=== PATIENT | female | born 1945 | race Caucasian/White ===

== ENCOUNTER 2019-09-24 10:56 | Outpatient (RCR) | payer MEDICARE ==
[~2019-09-24 10:56] MED LIST: APPLE CIDER VI500 MG PO; CALCIUM 500+D1 EACH PO; CARVEDILOL3.125 MG PO; CELEBREX100 MG PO; DAILY VALUE1 EACH PO; ENTRESTO 24 MG1 EACH PO; EVISTA60 MG PO; FUROSEMIDE40 MG PO; LIDOCAINE/PRILOCAINE 2.5-2.5% KIT ONE; LIPITOR20 MG PO; LORATADINE10 MG PO; LOTREL 10-20 M1 EACH PO; MAGNESIUM OXID400 MG PO; METFORMIN HCL850 MG PO; MULTIVITAMIN PO; ULTRACET TABLE1 EACH PO; ULTRAM 50MG50 MG PO; VALIUM10 MG PO; VITAMIN B12 PO; VITAMIN C500 MG PO; VITAMIN D32000 UNIT PO; VITAMIN D35000 UNIT PO
[2019-10-08] MEDS ORDERED: ASPIR 8181 MG PO (11:16)
[2019-10-08] MEDS ORDERED: AMIODARONE HCL200 MG PO (11:16)
[2019-10-08] MEDS ORDERED: JANUVIA100 MG PO (11:16)
[2019-10-08] MEDS ORDERED: ULTRAM50 MG PO (11:16)
[2019-10-11] MEDS ORDERED: ULTRAM50 MG PO (13:44)
[2019-10-11] MEDS ORDERED: MINOCYCLINE HC100 M1 PO (13:44)
== END 2019-10-12 ==
LOC: WCC 10:56
PROVIDERS: ATTEND Family Medicine Adult Medicine
DX: E11.69 Type 2 diabetes mellitus with other specified complication (principal); E11.65 Type 2 diabetes mellitus with hyperglycemia; L89.893 Pressure ulcer of other site, stage 3; C50.311 Malignant neoplasm of lower-inner quadrant of right female breast; I10 Essential (primary) hypertension; Z74.01 Bed confinement status
CPT/HCPCS: 36415; 82948

== ENCOUNTER 2019-10-10 13:29 | Observation (INO) | payer MEDICARE ==
[2019-10-08 11:50] LABS: BASOPHILS % 0.5 % (0.0-1.0); EOSINOPHILS % 0.7 % (0.0-6.0); HEMATOCRIT 37.5 % (34.2-44.1); HEMOGLOBIN 11.8 g/dL (12.0-16.0); LYMPHOCYTES # (AUTO) 0.8 (1.0-3.2); LYMPHOCYTES % 14.3 % (18.0-39.1); MEAN CORPUSCULAR HEMOGLOBIN 27.6 pg (28-32); MEAN CORPUSCULAR HGB CONC 31.5 g/dL (31-35); MEAN CORPUSCULAR VOLUME 87.6 fL (81-99); MONOCYTES # (AUTO) 0.6 (0.2-0.8); MONOCYTES % 10.8 % (4.4-11.3); NEUTROPHILS # (AUTO) 4.2 (2.1-6.9); NEUTROPHILS % 73.3 % (38.7-80.0); PLATELET COUNT 185 x10e3/uL (140-360); RED BLOOD COUNT 4.28 x10e6/uL (3.6-5.1); RED CELL DISTRIBUTION WIDTH 16.8 % (11.7-14.4)
[2019-10-08 12:02] LABS: INR 1.13; PROTHROMBIN TIME 15.2 seconds (11.9-14.5)
[2019-10-08 12:08] LABS: ANION GAP 12.5 mmol/L (8-16); CREATININE, SERUM 1.52 mg/dL (0.57-1.11); POTASSIUM 4.5 mmol/L (3.5-5.1)
[2019-10-08 12:10] LABS: CALCIUM 9.3 mg/dL (8.4-10.2)
--- NOTE | 2019-10-08 16:35 | NUR ---
Dr. Escobar notified of creatinine 1.52 and eGFR 33 and EKG showed sinus rhythm with first degree block and Left bundle branch block. No new orders at this time.
--- NOTE | 2019-10-09 17:29 | NUR ---
Patient notified of change in date and time of procedure to tomorrow 10/10/2019@ 1530. Patient notified to arrive at 1400. Patient okay to have light breakfast before 0600. Patient verbalized understanding.
[~2019-10-10] VITALS: Ht 167.6 cm; Wt 65.8 kg
[~2019-10-10 13:29] MED LIST changes: +AMIODARONE HCL200 MG PO; +ASPIR 8181 MG PO; +JANUVIA100 MG PO; -LIDOCAINE/PRILOCAINE 2.5-2.5% KIT ONE; +ULTRAM50 MG PO
--- OUTSIDE RECORDS SUMMARY | 2019-10-10 13:34 | XMS REPORT ---
Author [facility] Address Unknown Phone Unavailable Care Team Providers Care Operations Administrator Name Role Phone ADRIANO MEDEROS Unavailable Unavailable Payers Payer Name Policy Type Policy Number Effective Date Expiration Date Problems This patient has no known problems. Allergies, Adverse Reactions, Alerts Allergy Name Allergy Type Status Severity Reaction(s) Onset Date Inactive Date Treating Clinician Comments No Known Contrast Allergies DA Active U 2007-01-25 00:00:00 No Known Food Allergies DA Active U 2007-01-25 00:00:00 No Known Other Allergies DA Active U 2007-01-25 00:00:00 PENICILLIN DA Active U 2007-01-25 00:00:00 TALWIN DA Active U 2007-01-25 00:00:00 Medications This patient has no known medications. Results Test Description Test Time Test Comments Text Results Atomic Results Result Comments POCT-GLUCOSE METER 2019-06-25 10:04:00 POC-GLUCOSE METER (BEAKER) (test ncio=5057) 120 mg/dL 70-110 : TESTED AT [address], [address]: Child Welfare Caseworker/Manager Agricultural [id number] for Lesly Osorio [id number] 06:20:00* Test Item Value Reference Range Comments MAGNESIUM (BEAKER) (test mrsd=235) 1.9 mg/dL 1.6-2.6 BASIC METABOLIC [id number] 06:20:00* Test Item Value Reference Range Comments SODIUM (BEAKER) (test lhcn=569) 134 meq/L 136-145 POTASSIUM (BEAKER) (test rmov=938) 4.1 meq/L 3.5-5.1 CHLORIDE (BEAKER) (test jlkh=262) 103 meq/L 98-107 CO2 (BEAKER) (test ezou=077) 25 meq/L 22-29 BLOOD UREA NITROGEN (BEAKER) (test gywl=083) 26 mg/dL 7-21 CREATININE (BEAKER) (test rofi=506) 0.98 mg/dL 0.57-1.25 GLUCOSE RANDOM (BEAKER) (test xwwt=807) 111 mg/dL 70-105 CALCIUM (BEAKER) (test rqfq=246) 8.6 mg/dL 8.4-10.2 EGFR (BEAKER) (test bnhd=8581) 55 mL/min/1.73 sq m ESTIMATED GFR IS NOT ACCURATE CREATININE CLEARANCE IN PREDICTING GLOMERULAR FILTRATION RATE. ESTIMATED GFR IS NOT APPLICABLE FOR DIALYSIS PATIENTS. CBC (HEMOGRAM ONLY)2019-06-25 05:17:00* Test Item Value Reference Range Comments WHITE BLOOD CELL COUNT (BEAKER) (test siuf=609) 7.6 K/ L 3.5-10.5 RED BLOOD CELL COUNT (BEAKER) (test aywr=943) 2.78 M/ L 3.93-5.22 HEMOGLOBIN (BEAKER) (test iuoc=057) 8.9 GM/DL 11.2-15.7 HEMATOCRIT (BEAKER) (test acgq=889) 28.0 % 34.1-44.9 MEAN CORPUSCULAR VOLUME (BEAKER) (test sxus=597) 100.7 fL 79.4-94.8 MEAN CORPUSCULAR HEMOGLOBIN (BEAKER) (test vbnr=488) 32.0 pg 25.6-32.2 MEAN CORPUSCULAR HEMOGLOBIN CONC (BEAKER) (test kxzl=094) 31.8 GM/DL 32.2-35.5 RED CELL DISTRIBUTION WIDTH (BEAKER) (test wvft=743) 15.1 % 11.7-14.4 PLATELET COUNT (BEAKER) (test xtxt=850) 213 K/CU MM 150-450 MEAN PLATELET VOLUME (BEAKER) (test dhxf=691) 10.7 fL 9.4-12.3 NUCLEATED RED BLOOD CELLS (BEAKER) (test hskp=814) 0 /100 WBC 0-0 POCT-GLUCOSE [id number] 21:37:00* Test Item Value Reference Range Comments POC-GLUCOSE METER (BEAKER) (test yffv=9537) 128 mg/dL 70-110 : TESTED AT [facility] [address] [facility], [address]: Child Welfare Caseworker/Manager Agricultural [id number]=[id number] for LISSET GRACE POCT-GLUCOSE [id number] 08:18:00* Test Item Value Reference Range Comments POC-GLUCOSE METER (BEAKER) (test wwww=2035) 122 mg/dL 70-110 : TESTED AT [facility] [address] [facility], [address]: Child Welfare Caseworker/Manager Agricultural [id number] for Chioma Hager [id number] 06:32:00* Test Item Value Reference Range Comments MAGNESIUM (BEAKER) (test raep=495) 1.7 mg/dL 1.6-2.6 BASIC METABOLIC [id number] 06:32:00* Test Item Value Reference Range Comments SODIUM (BEAKER) (test xfvg=295) 133 meq/L 136-145 POTASSIUM (BEAKER) (test kbtk=287) 4.1 meq/L 3.5-5.1 CHLORIDE (BEAKER) (test fkwx=813) 102 meq/L 98-107 CO2 (BEAKER) (test kqyj=341) 23 meq/L 22-29 BLOOD UREA NITROGEN (BEAKER) (test dhlb=338) 27 mg/dL 7-21 CREATININE (BEAKER) (test fkpx=088) 0.94 mg/dL 0.57-1.25 GLUCOSE RANDOM (BEAKER) (test lyzd=058) 131 mg/dL 70-105 CALCIUM (BEAKER) (test kjxk=164) 8.8 mg/dL 8.4-10.2 EGFR (BEAKER) (test rdgn=8320) 58 mL/min/1.73 sq m ESTIMATED GFR IS NOT ACCURATE CREATININE CLEARANCE IN PREDICTING GLOMERULAR FILTRATION RATE. ESTIMATED GFR IS NOT APPLICABLE FOR DIALYSIS PATIENTS. CBC (HEMOGRAM ONLY)2019-06-24 05:55:00* Test Item Value Reference Range Comments WHITE BLOOD CELL COUNT (BEAKER) (test ibtn=650) 8.9 K/ L 3.5-10.5 RED BLOOD CELL COUNT (BEAKER) (test rjgq=664) 2.76 M/ L 3.93-5.22 HEMOGLOBIN (BEAKER) (test bcdd=403) 8.8 GM/DL 11.2-15.7 HEMATOCRIT (BEAKER) (test xwzw=603) 26.9 % 34.1-44.9 MEAN CORPUSCULAR VOLUME (BEAKER) (test tgcb=499) 97.5 fL 79.4-94.8 MEAN CORPUSCULAR HEMOGLOBIN (BEAKER) (test zekh=285) 31.9 pg 25.6-32.2 MEAN CORPUSCULAR HEMOGLOBIN CONC (BEAKER) (test tkzi=734) 32.7 GM/DL 32.2-35.5 RED CELL DISTRIBUTION WIDTH (BEAKER) (test qzud=390) 14.6 % 11.7-14.4 PLATELET COUNT (BEAKER) (test cjsr=454) 219 K/CU MM 150-450 MEAN PLATELET VOLUME (BEAKER) (test erjd=808) 11.0 fL 9.4-12.3 NUCLEATED RED BLOOD CELLS (BEAKER) (test iwax=616) 0 /100 WBC 0-0 POCT-GLUCOSE [id number] 20:55:00* Test Item Value Reference Range Comments POC-GLUCOSE METER (BEAKER) (test yfyf=7560) 165 mg/dL 70-110 : TESTED AT [facility] [address] [facility], [address]: Child Welfare Caseworker/Manager Agricultural [id number]=[id number] for ANTHONY PHILLIPO POCT-GLUCOSE [id number] 15:28:00* Test Item Value Reference Range Comments POC-GLUCOSE METER (BEAKER) (test ojjh=6124) 111 mg/dL 70-110 : TESTED AT [place] [address] [facility], [address]: Child Welfare Caseworker/Manager Agricultural [id number] for EMILIA HUANG POCT-GLUCOSE [id number] 13:00:00* Test Item Value Reference Range Comments POC-GLUCOSE METER (BEAKER) (test pgdv=0843) 145 mg/dL 70-110 : TESTED AT [place] [address] [facility], [address]: Child Welfare Caseworker/Manager Agricultural SE=[id number] for REINAEMILIA RAD, CHEST, 1 VIEW, NON [id number] 08:52:00while patient is intubated or has chest tubes.Reason for exam:->Status post CV SurgeryShould this be performed at the bedside?->YesFINAL REPORT AP view of the chest dated 06/23/2019 COMPARISON: 06/22/2019 CLINICAL INFORMATION: Status post CV Surgery Comment: Heart is enlarged. There is bilateral pleural effusion with bibasilar subsegmental atelectasis. The rest of the lungs are clear. No pneumothorax is seen. IMPRESSION: No interval change. Signed: Cecille Cornell MDReport Verified Date/Time: 06/23/2019 08:52:32 Reading Location: [facility] C013W Consult Reading Room -GLUCOSE [id number] 08:24:00* Test Item Value Reference Range Comments POC-GLUCOSE METER (BEAKER) (test gzsi=4507) 112 mg/dL 70-110 : TESTED AT [address], [address]: Child Welfare Caseworker/Manager Agricultural [id number] for EMILIA HUANG [id number] 05:39:00* Test Item Value Reference Range Comments MAGNESIUM (BEAKER) (test rdch=726) 2.0 mg/dL 1.6-2.6 BASIC METABOLIC [id number] 05:39:00* Test Item Value Reference Range Comments SODIUM (BEAKER) (test hxqx=092) 135 meq/L 136-145 POTASSIUM (BEAKER) (test wewu=941) 4.0 meq/L 3.5-5.1 CHLORIDE (BEAKER) (test aazb=523) 104 meq/L 98-107 CO2 (BEAKER) (test etbc=090) 20 meq/L 22-29 BLOOD UREA NITROGEN (BEAKER) (test waue=224) 29 mg/dL 7-21 CREATININE (BEAKER) (test bfqq=895) 0.87 mg/dL 0.57-1.25 GLUCOSE RANDOM (BEAKER) (test itvt=921) 106 mg/dL 70-105 CALCIUM (BEAKER) (test bqzt=799) 8.5 mg/dL 8.4-10.2 EGFR (BEAKER) (test fdqt=3972) 63 mL/min/1.73 sq m ESTIMATED GFR IS NOT ACCURATE CREATININE CLEARANCE IN PREDICTING GLOMERULAR FILTRATION RATE. ESTIMATED GFR IS NOT APPLICABLE FOR DIALYSIS PATIENTS. CBC (HEMOGRAM ONLY)2019-06-23 05:27:00* Test Item Value Reference Range Comments WHITE BLOOD CELL COUNT (BEAKER) (test okzh=186) 6.8 K/ L 3.5-10.5 RED BLOOD CELL COUNT (BEAKER) (test tudt=267) 2.74 M/ L 3.93-5.22 HEMOGLOBIN (BEAKER) (test whfe=566) 8.7 GM/DL 11.2-15.7 HEMATOCRIT (BEAKER) (test lebb=450) 26.6 % 34.1-44.9 MEAN CORPUSCULAR VOLUME (BEAKER) (test ximm=441) 97.1 fL 79.4-94.8 MEAN CORPUSCULAR HEMOGLOBIN (BEAKER) (test kwyn=629) 31.8 pg 25.6-32.2 MEAN CORPUSCULAR HEMOGLOBIN CONC (BEAKER) (test vanp=366) 32.7 GM/DL 32.2-35.5 RED CELL DISTRIBUTION WIDTH (BEAKER) (test upom=441) 14.4 % 11.7-14.4 PLATELET COUNT (BEAKER) (test nioz=477) 177 K/CU MM 150-450 MEAN PLATELET VOLUME (BEAKER) (test ctok=519) 11.3 fL 9.4-12.3 NUCLEATED RED BLOOD CELLS (BEAKER) (test lqin=441) 0 /100 WBC 0-0 POCT-GLUCOSE [id number] 22:36:00* Test Item Value Reference Range Comments POC-GLUCOSE METER (BEAKER) (test irdl=1457) 128 mg/dL 70-110 : TESTED AT [place] [address] [facility], [address]: Child Welfare Caseworker/Manager Agricultural JQ=[id number] for ANTHONY PHILLIPO POCT-GLUCOSE [id number] 17:09:00* Test Item Value Reference Range Comments POC-GLUCOSE METER (BEAKER) (test ixkj=5415) 113 mg/dL 70-110 : TESTED AT [place] [address] [facility], [address]: Child Welfare Caseworker/Manager Agricultural AD=[id number] for HIREN ARRIOLA POCT-GLUCOSE [id number] 12:30:00* Test Item Value Reference Range Comments POC-GLUCOSE METER (BEAKER) (test tyqm=9997) 173 mg/dL 70-110 : TESTED AT [place] [address] [facility], [address]: Child Welfare Caseworker/Manager Agricultural BD=[id number] for SIXTO ANDERSON RAD, CHEST, 1 VIEW, NON [id number] 08:11:00while patient is intubated or has chest tubes.Reason for exam:->Status post CV SurgeryShould this be performed at the bedside?->YesFINAL REPORT RAD, CHEST, 1 VIEW, NON DEPT INDICATION: Status post CV Surgery COMPARISON: Prior day's exam FINDINGS: Portable frontal view of the chest. IMPRESSION: Support Lines: Sternotomy wires Lungs and pleura: Mild bilateral effusions and basilar subsegmental atelectasis No pneumothorax.Heart and mediastinum: Stable contours. Additional findings: None. Signed: Charlie Mays MDReport Verified Date/Time: 06/22/2019 08:11:45 Reading Location: [facility] C013 Neuro Reading Room ESIUM 2019-06-22 07:02:00* Test Item Value Reference Range Comments MAGNESIUM (BEAKER) (test ukso=385) 1.9 mg/dL 1.6-2.6 BASIC METABOLIC [id number] 07:02:00* Test Item Value Reference Range Comments SODIUM (BEAKER) (test wqzs=180) 138 meq/L 136-145 POTASSIUM (BEAKER) (test gnuj=679) 3.7 meq/L 3.5-5.1 CHLORIDE (BEAKER) (test uenk=836) 105 meq/L 98-107 CO2 (BEAKER) (test uyyi=371) 25 meq/L 22-29 BLOOD UREA NITROGEN (BEAKER) (test cmpm=503) 30 mg/dL 7-21 CREATININE (BEAKER) (test phrf=303) 0.84 mg/dL 0.57-1.25 GLUCOSE RANDOM (BEAKER) (test vgqf=299) 96 mg/dL 70-105 CALCIUM (BEAKER) (test aomz=018) 8.5 mg/dL 8.4-10.2 EGFR (BEAKER) (test wnex=9823) 66 mL/min/1.73 sq m ESTIMATED GFR IS NOT ACCURATE CREATININE CLEARANCE IN PREDICTING GLOMERULAR FILTRATION RATE. ESTIMATED GFR IS NOT APPLICABLE FOR DIALYSIS PATIENTS. CBC W/PLT COUNT & AUTO [id number] 06:36:00* Test Item Value Reference Range Comments WHITE BLOOD CELL COUNT (BEAKER) (test zpma=048) 8.1 K/ L 3.5-10.5 RED BLOOD CELL COUNT (BEAKER) (test gmva=826) 2.81 M/ L 3.93-5.22 HEMOGLOBIN (BEAKER) (test tlxd=491) 8.9 GM/DL 11.2-15.7 HEMATOCRIT (BEAKER) (test tbgn=923) 27.6 % 34.1-44.9 MEAN CORPUSCULAR VOLUME (BEAKER) (test jvng=911) 98.2 fL 79.4-94.8 MEAN CORPUSCULAR HEMOGLOBIN (BEAKER) (test corm=277) 31.7 pg 25.6-32.2 MEAN CORPUSCULAR HEMOGLOBIN CONC (BEAKER) (test rrgp=464) 32.2 GM/DL 32.2-35.5 RED CELL DISTRIBUTION WIDTH (BEAKER) (test xsrn=998) 13.9 % 11.7-14.4 PLATELET COUNT (BEAKER) (test rnzo=926) 149 K/CU MM 150-450 MEAN PLATELET VOLUME (BEAKER) (test jaii=571) 11.5 fL 9.4-12.3 NUCLEATED RED BLOOD CELLS (BEAKER) (test xvqd=420) 0 /100 WBC 0-0 NEUTROPHILS RELATIVE PERCENT (BEAKER) (test ecct=153) 72 % LYMPHOCYTES RELATIVE PERCENT (BEAKER) (test wyyt=595) 16 % MONOCYTES RELATIVE PERCENT (BEAKER) (test rzdy=987) 11 % EOSINOPHILS RELATIVE PERCENT (BEAKER) (test kvel=937) 1 % BASOPHILS RELATIVE PERCENT (BEAKER) (test sltn=506) 0 % NEUTROPHILS ABSOLUTE COUNT (BEAKER) (test coir=528) 5.84 K/ L 1.56-6.13 LYMPHOCYTES ABSOLUTE COUNT (BEAKER) (test noft=389) 1.28 K/ L 1.18-3.74 MONOCYTES ABSOLUTE COUNT (BEAKER) (test biwl=452) 0.85 K/ L 0.24-0.36 EOSINOPHILS ABSOLUTE COUNT (BEAKER) (test imha=538) 0.05 K/ L 0.04-0.36 BASOPHILS ABSOLUTE COUNT (BEAKER) (test ajwp=704) 0.03 K/ L 0.01-0.08 IMMATURE GRANULOCYTES-RELATIVE PERCENT (BEAKER) (test ivan=1418) 1 % 0-1 POCT-GLUCOSE [id number] 20:59:00* Test Item Value Reference Range Comments POC-GLUCOSE METER (BEAKER) (test lixx=2097) 118 mg/dL 70-110 : TESTED AT [place] [address] [facility], [address]: Child Welfare Caseworker/Manager Agricultural GT=[id number] for ANTHONY PHILLIPO POCT-GLUCOSE [id number] 18:55:00* Test Item Value Reference Range Comments POC-GLUCOSE METER (BEAKER) (test jvxn=1419) 147 mg/dL 70-110 : TESTED AT [address], [address]: Child Welfare Caseworker/Manager Agricultural EU=[id number] for SIXTO ANDERSON POCT-GLUCOSE [id number] 16:20:00* Test Item Value Reference Range Comments POC-GLUCOSE METER (BEAKER) (test krfn=1015) 120 mg/dL 70-110 : TESTED AT [address], [address]: Child Welfare Caseworker/Manager Agricultural TN=[id number] for SANTIAGO CHAVES POCT-GLUCOSE [id number] 09:40:00* Test Item Value Reference Range Comments POC-GLUCOSE METER (BEAKER) (test sotb=4267) 106 mg/dL 70-110 : TESTED AT [address], [address]: Child Welfare Caseworker/Manager Agricultural OU=[id number] for JUSTIN, SIXTO CBC W/PLT COUNT & AUTO [id number] 05:57:00* Test Item Value Reference Range Comments WHITE BLOOD CELL COUNT (BEAKER) (test xudq=148) 8.9 K/ L 3.5-10.5 RED BLOOD CELL COUNT (BEAKER) (test sqyx=520) 2.67 M/ L 3.93-5.22 HEMOGLOBIN (BEAKER) (test jhjn=638) 8.6 GM/DL 11.2-15.7 HEMATOCRIT (BEAKER) (test ailf=286) 25.7 % 34.1-44.9 MEAN CORPUSCULAR VOLUME (BEAKER) (test xpaa=192) 96.3 fL 79.4-94.8 MEAN CORPUSCULAR HEMOGLOBIN (BEAKER) (test orwv=676) 32.2 pg 25.6-32.2 MEAN CORPUSCULAR HEMOGLOBIN CONC (BEAKER) (test tjcm=304) 33.5 GM/DL 32.2-35.5 RED CELL DISTRIBUTION WIDTH (BEAKER) (test vclu=799) 14.3 % 11.7-14.4 PLATELET COUNT (BEAKER) (test gicw=966) 124 K/CU MM 150-450 MEAN PLATELET VOLUME (BEAKER) (test kvfg=051) 11.6 fL 9.4-12.3 NUCLEATED RED BLOOD CELLS (BEAKER) (test cmnt=388) 0 /100 WBC 0-0 NEUTROPHILS RELATIVE PERCENT (BEAKER) (test tndz=674) 79 % LYMPHOCYTES RELATIVE PERCENT (BEAKER) (test wzcn=597) 12 % MONOCYTES RELATIVE PERCENT (BEAKER) (test hxrr=542) 8 % EOSINOPHILS RELATIVE PERCENT (BEAKER) (test gtov=517) 0 % BASOPHILS RELATIVE PERCENT (BEAKER) (test fsgq=893) 0 % NEUTROPHILS ABSOLUTE COUNT (BEAKER) (test urfb=865) 6.99 K/ L 1.56-6.13 LYMPHOCYTES ABSOLUTE COUNT (BEAKER) (test jjxw=500) 1.02 K/ L 1.18-3.74 MONOCYTES ABSOLUTE COUNT (BEAKER) (test psmn=373) 0.73 K/ L 0.24-0.36 EOSINOPHILS ABSOLUTE COUNT (BEAKER) (test mxiy=872) 0.02 K/ L 0.04-0.36 BASOPHILS ABSOLUTE COUNT (BEAKER) (test noze=127) 0.03 K/ L 0.01-0.08 IMMATURE GRANULOCYTES-RELATIVE PERCENT (BEAKER) (test nyyc=5538) 1 % 0-1 [id number] 05:26:00* Test Item Value Reference Range Comments MAGNESIUM (BEAKER) (test juhe=368) 1.8 mg/dL 1.6-2.6 Specimen slightly hemolyzed BASIC METABOLIC [id number] 05:26:00* Test Item Value Reference Range Comments SODIUM (BEAKER) (test itgf=079) 138 meq/L 136-145 POTASSIUM (BEAKER) (test rasz=235) 3.7 meq/L 3.5-5.1 Specimen slightly hemolyzed CHLORIDE (BEAKER) (test cqyn=073) 107 meq/L 98-107 CO2 (BEAKER) (test mger=694) 26 meq/L 22-29 BLOOD UREA NITROGEN (BEAKER) (test mepg=925) 28 mg/dL 7-21 CREATININE (BEAKER) (test xdhj=437) 0.94 mg/dL 0.57-1.25 Specimen slightly hemolyzed GLUCOSE RANDOM (BEAKER) (test tjds=758) 100 mg/dL 70-105 CALCIUM (BEAKER) (test yauj=555) 8.5 mg/dL 8.4-10.2 EGFR (BEAKER) (test fdbk=0069) 58 mL/min/1.73 sq m ESTIMATED GFR IS NOT ACCURATE CREATININE CLEARANCE IN PREDICTING GLOMERULAR FILTRATION RATE. ESTIMATED GFR IS NOT APPLICABLE FOR DIALYSIS PATIENTS. RAD, CHEST, 1 VIEW, NON [id number] 05:21:00while patient is intubated or has chest tubes.Reason for exam:->Status post CV SurgeryShould this be performed at the bedside?->YesFINAL REPORT RAD, CHEST, 1 VIEW, NON DEPT INDICATION: Status post CV Surgery COMPARISON: Prior day's exam FINDINGS: Portable frontal view of the chest. IMPRESSION: Support Lines: The right IJ sheath has been removed. Otherwise, stable support lines. Lungs and pleura: Unchanged airspace and pleural opacities. No new airspace consolidation. No pneumothorax.Heart and mediastinum: Stable contours. Stable surgical changes.Additional findings: None. Signed: Cecille Blancaeport Verified Date/Time: 06/21/2019 05:21:38 -GLUCOSE [id number] 03:21:00* Test Item Value Reference Range Comments POC-GLUCOSE METER (BEAKER) (test bput=9401) 111 mg/dL 70-110 : TESTED AT [facility] [address] [facility], [address]: Child Welfare Caseworker/Manager Agricultural SH=[id number] for LISSET GRACE POCT-GLUCOSE [id number] 20:36:00* Test Item Value Reference Range Comments POC-GLUCOSE METER (BEAKER) (test ywwi=8544) 127 mg/dL 70-110 : TESTED AT [facility] [address] [facility], [address]: Child Welfare Caseworker/Manager Agricultural OU=[id number] for KENZIE VALENZUELA POCT-GLUCOSE [id number] 17:33:00* Test Item Value Reference Range Comments POC-GLUCOSE METER (BEAKER) (test tynx=2417) 130 mg/dL 70-110 : TESTED AT [facility] [address] [facility], [address]: Child Welfare Caseworker/Manager Agricultural CV=[id number] for Lesly Osorio POCT-GLUCOSE [id number] 11:33:00* Test Item Value Reference Range Comments POC-GLUCOSE METER (BEAKER) (test mels=5526) 150 mg/dL 70-110 : TESTED AT [facility] [address] [facility], [address]: Child Welfare Caseworker/Manager Agricultural [id number] for ADAN SHEA OXYGEN SATURATION, [id number] 09:21:00* Test Item Value Reference Range Comments O2 SATURATION (MEASURED) (BEAKER) (test hvrs=5778) 62.2 % POCT-GLUCOSE [id number] 08:37:00* Test Item Value Reference Range Comments POC-GLUCOSE METER (BEAKER) (test kktl=3293) 152 mg/dL 70-110 : TESTED AT [facility] [address] [facility], [address]: Child Welfare Caseworker/Manager Agricultural ID=[id number] for BEKAH RODARTERED RAD, CHEST, 1 VIEW, NON [id number] 05:00:00while patient is intubated or has chest tubes.Reason for exam:->Status post CV SurgeryShould this be performed at the bedside?->YesFINAL REPORT RAD, CHEST, 1 VIEW, NON DEPT INDICATION: Status post CV Surgery COMPARISON: Prior day's exam FINDINGS: Portable frontal view of the chest. IMPRESSION: Support Lines: Interval removal of right IJ [place]-Nikolas catheter now the central venous catheter over the SVC. Interval previously seen intra-aortic balloon pump. Otherwise unchanged support apparatus.Lungs and pleura: Patchy heterogeneous airspace opacity in the right lung base are increased in the interval . Possibly related to increased right pleural effusion and atelectasis however developing infection should be excluded clinically. No pneumothorax.Heart and mediastinum: Stable contours. Stable surgical changes.Additional findings: None. Signed: [facility] Verified Date/Time: 06/20/2019 05:00:43 [id number] 04:59:00 * Test Item Value Reference Range Comments PHOSPHORUS (BEAKER) (test nmeu=383) 2.7 mg/dL 2.3-4.7 [id number] 04:59:00* Test Item Value Reference Range Comments MAGNESIUM (BEAKER) (test zekn=169) 1.8 mg/dL 1.6-2.6 BASIC METABOLIC [id number] 04:59:00* Test Item Value Reference Range Comments SODIUM (BEAKER) (test otwr=483) 139 meq/L 136-145 POTASSIUM (BEAKER) (test zzax=835) 4.3 meq/L 3.5-5.1 CHLORIDE (BEAKER) (test kpme=962) 111 meq/L 98-107 CO2 (BEAKER) (test kein=497) 21 meq/L 22-29 BLOOD UREA NITROGEN (BEAKER) (test jkhp=702) 25 mg/dL 7-21 CREATININE (BEAKER) (test pgee=633) 0.95 mg/dL 0.57-1.25 GLUCOSE RANDOM (BEAKER) (test yhxr=956) 164 mg/dL 70-105 CALCIUM (BEAKER) (test qace=059) 8.6 mg/dL 8.4-10.2 EGFR (BEAKER) (test eyhv=3661) 57 mL/min/1.73 sq m ESTIMATED GFR IS NOT ACCURATE CREATININE CLEARANCE IN PREDICTING GLOMERULAR FILTRATION RATE. ESTIMATED GFR IS NOT APPLICABLE FOR DIALYSIS PATIENTS. CBC W/PLT COUNT & AUTO [id number] 04:51:00* Test Item Value Reference Range Comments WHITE BLOOD CELL COUNT (BEAKER) (test cgxc=295) 12.2 K/ L 3.5-10.5 RED BLOOD CELL COUNT (BEAKER) (test nplh=094) 2.78 M/ L 3.93-5.22 HEMOGLOBIN (BEAKER) (test hcdg=472) 8.7 GM/DL 11.2-15.7 HEMATOCRIT (BEAKER) (test himb=209) 26.4 % 34.1-44.9 MEAN CORPUSCULAR VOLUME (BEAKER) (test cbyp=096) 95.0 fL 79.4-94.8 MEAN CORPUSCULAR HEMOGLOBIN (BEAKER) (test ckwe=791) 31.3 pg 25.6-32.2 MEAN CORPUSCULAR HEMOGLOBIN CONC (BEAKER) (test lgyr=781) 33.0 GM/DL 32.2-35.5 RED CELL DISTRIBUTION WIDTH (BEAKER) (test dyzv=300) 14.7 % 11.7-14.4 PLATELET COUNT (BEAKER) (test yogb=478) 129 K/CU MM 150-450 MEAN PLATELET VOLUME (BEAKER) (test hdtq=929) 11.2 fL 9.4-12.3 NUCLEATED RED BLOOD CELLS (BEAKER) (test ddhs=402) 0 /100 WBC 0-0 NEUTROPHILS RELATIVE PERCENT (BEAKER) (test zbpa=834) 81 % LYMPHOCYTES RELATIVE PERCENT (BEAKER) (test lcdg=103) 10 % MONOCYTES RELATIVE PERCENT (BEAKER) (test hcsd=331) 8 % EOSINOPHILS RELATIVE PERCENT (BEAKER) (test dvwf=666) 0 % BASOPHILS RELATIVE PERCENT (BEAKER) (test lutu=770) 0 % NEUTROPHILS ABSOLUTE COUNT (BEAKER) (test dkpq=756) 9.86 K/ L 1.56-6.13 LYMPHOCYTES ABSOLUTE COUNT (BEAKER) (test jkgi=074) 1.26 K/ L 1.18-3.74 MONOCYTES ABSOLUTE COUNT (BEAKER) (test lkik=386) 0.97 K/ L 0.24-0.36 EOSINOPHILS ABSOLUTE COUNT (BEAKER) (test pmpa=954) 0.00 K/ L 0.04-0.36 BASOPHILS ABSOLUTE COUNT (BEAKER) (test llaq=192) 0.03 K/ L 0.01-0.08 IMMATURE GRANULOCYTES-RELATIVE PERCENT (BEAKER) (test jiqb=3787) 1 % 0-1 LACTIC ACID, [id number] 04:47:00* Test Item Value Reference Range Comments LACTATE BLOOD ARTERIAL (2) (BEAKER) (test owih=8522) 1.3 mmol/L 0.5-2.2 BLOOD GAS, [id number] 04:41:00* Test Item Value Reference Range Comments PH ARTERIAL (BEAKER) (test xwda=418) 7.49 7.35-7.45 PCO2 ARTERIAL (BEAKER) (test vziv=563) 27 mmHg 35-45 PO2 ARTERIAL (BEAKER) (test iueb=642) 78 mmHg 80-90 O2 SATURATION ARTERIAL (BEAKER) (test sivs=288) 96.7 % 96.0-97.0 HCO3 ARTERIAL (BEAKER) (test xpay=887) 20 mmol/L 21-29 BASE EXCESS ARTERIAL (BEAKER) (test rjcy=478) -2.2 mmol/L -2.0-3.0 PATIENT TEMPERATURE (BEAKER) (test xowv=7383) 36.7 C FIO2 (BEAKER) (test czhe=0158) 100.0 % OXYGEN SATURATION, [id number] 04:40:00* Test Item Value Reference Range Comments O2 SATURATION (MEASURED) (BEAKER) (test obqi=9726) 54.7 % POCT-GLUCOSE [id number] 01:17:00* Test Item Value Reference Range Comments POC-GLUCOSE METER (BEAKER) (test jicc=8783) 144 mg/dL 70-110 : TESTED [address], [id number]: Child Welfare Caseworker/Manager Agricultural NO=[id number] for Dora Reid POCT-GLUCOSE [id number] 21:04:00* Test Item Value Reference Range Comments POC-GLUCOSE METER (BEAKER) (test irqv=5417) 135 mg/dL 70-110 : TESTED AT [address], [address]: Child Welfare Caseworker/Manager Agricultural RM=[id number] for Aris Cordoba OXYGEN SATURATION, [id number] 14:40:00* Test Item Value Reference Range Comments O2 SATURATION (MEASURED) (BEAKER) (test wypb=5409) 45.2 % OXYGEN SATURATION, [id number] 11:16:00* Test Item Value Reference Range Comments O2 SATURATION (MEASURED) (BEAKER) (test ubtl=0031) 45.5 % POCT-GLUCOSE [id number] 05:30:00* Test Item Value Reference Range Comments POC-GLUCOSE METER (BEAKER) (test ohvb=9266) 167 mg/dL 70-110 : TESTED AT [address], [address]: Child Welfare Caseworker/Manager Agricultural PT=[id number] for FRITZ WOOBILala RAD, CHEST, 1 VIEW, NON [id number] 04:07:00while patient is intubated or has chest tubes.Reason for exam:->Status post CV SurgeryShould this be performed at the bedside?->YesFINAL REPORT CLINICAL INDICATION: Postop Comparison: 06/18/2019 The examination is limited by exclusion of the superior portion of the apices. The cardiomediastinal contours are stable. Central pulmonary vascular prominence and bilateral parenchymal and right pleural opacities are unchanged. No pneumothorax is identified. It appears the patient has been extubated, however, exclusion of the apices limits evaluation for high endotracheal tube positioning. Please correlate. Remaining support lines are stable. Signed: Cale Paul MDReport Verified Date/Time: 06/19/2019 04:07:54 [id number] 03:46:00* Test Item Value Reference Range Comments PHOSPHORUS (BEAKER) (test ysfx=535) 3.3 mg/dL 2.3-4.7 [id number] 03:46:00* Test Item Value Reference Range Comments MAGNESIUM (BEAKER) (test izln=382) 2.0 mg/dL 1.6-2.6 BASIC METABOLIC [id number] 03:46:00* Test Item Value Reference Range Comments SODIUM (BEAKER) (test vufx=459) 139 meq/L 136-145 POTASSIUM (BEAKER) (test eieo=771) 4.2 meq/L 3.5-5.1 CHLORIDE (BEAKER) (test ktxi=947) 114 meq/L 98-107 CO2 (BEAKER) (test vjyo=429) 20 meq/L 22-29 BLOOD UREA NITROGEN (BEAKER) (test qgmb=764) 16 mg/dL 7-21 CREATININE (BEAKER) (test qbue=878) 0.78 mg/dL 0.57-1.25 GLUCOSE RANDOM (BEAKER) (test qtpa=695) 173 mg/dL 70-105 CALCIUM (BEAKER) (test gagg=148) 8.5 mg/dL 8.4-10.2 EGFR (BEAKER) (test wnaq=4464) 72 mL/min/1.73 sq m ESTIMATED GFR IS NOT ACCURATE CREATININE CLEARANCE IN PREDICTING GLOMERULAR FILTRATION RATE. ESTIMATED GFR IS NOT APPLICABLE FOR DIALYSIS PATIENTS. CBC (HEMOGRAM ONLY)2019-06-19 03:24:00* Test Item Value Reference Range Comments WHITE BLOOD CELL COUNT (BEAKER) (test pahq=913) 11.2 K/ L 3.5-10.5 RED BLOOD CELL COUNT (BEAKER) (test tozk=488) 2.74 M/ L 3.93-5.22 HEMOGLOBIN (BEAKER) (test vqvu=063) 8.6 GM/DL 11.2-15.7 HEMATOCRIT (BEAKER) (test evqd=480) 26.4 % 34.1-44.9 MEAN CORPUSCULAR VOLUME (BEAKER) (test sbzo=382) 96.4 fL 79.4-94.8 MEAN CORPUSCULAR HEMOGLOBIN (BEAKER) (test nhfm=625) 31.4 pg 25.6-32.2 MEAN CORPUSCULAR HEMOGLOBIN CONC (BEAKER) (test antb=891) 32.6 GM/DL 32.2-35.5 RED CELL DISTRIBUTION WIDTH (BEAKER) (test vchm=688) 15.6 % 11.7-14.4 PLATELET COUNT (BEAKER) (test hrun=582) 110 K/CU MM 150-450 MEAN PLATELET VOLUME (BEAKER) (test dknk=721) 11.0 fL 9.4-12.3 NUCLEATED RED BLOOD CELLS (BEAKER) (test ajtt=045) 0 /100 WBC 0-0 CALCIUM, [id number] 03:16:00* Test Item Value Reference Range Comments CALCIUM IONIZED (BEAKER) (test jekm=553) 1.20 mmol/L 1.12-1.27 PH, BLOOD (BEAKER) (test kisq=7424) 7.43 [id number] 22:31:00* Test Item Value Reference Range Comments GLUCOSE RANDOM (BEAKER) (test zngl=444) 209 mg/dL 70-105 BASIC METABOLIC [id number] 22:31:00* Test Item Value Reference Range Comments SODIUM (BEAKER) (test dynu=891) 133 meq/L 136-145 POTASSIUM (BEAKER) (test enah=561) 4.0 meq/L 3.5-5.1 CHLORIDE (BEAKER) (test bkpg=616) 109 meq/L 98-107 CO2 (BEAKER) (test aenx=570) 17 meq/L 22-29 BLOOD UREA NITROGEN (BEAKER) (test ozwx=815) 18 mg/dL 7-21 CREATININE (BEAKER) (test pxmv=052) 0.84 mg/dL 0.57-1.25 GLUCOSE RANDOM (BEAKER) (test bvmd=035) 209 mg/dL 70-105 CALCIUM (BEAKER) (test zasd=646) 8.1 mg/dL 8.4-10.2 EGFR (BEAKER) (test lyfw=5324) 66 mL/min/1.73 sq m ESTIMATED GFR IS NOT ACCURATE CREATININE CLEARANCE IN PREDICTING GLOMERULAR FILTRATION RATE. ESTIMATED GFR IS NOT APPLICABLE FOR DIALYSIS PATIENTS. CALCIUM, [id number] 22:13:00* Test Item Value Reference Range Comments CALCIUM IONIZED (BEAKER) (test yrly=642) 1.05 mmol/L 1.12-1.27 PH, BLOOD (BEAKER) (test cdfb=8655) 7.41 BLOOD GAS, [id number] 22:13:00* Test Item Value Reference Range Comments PH ARTERIAL (BEAKER) (test hbpz=151) 7.41 7.35-7.45 PCO2 ARTERIAL (BEAKER) (test dggl=785) 33 mmHg 35-45 PO2 ARTERIAL (BEAKER) (test tgep=559) 87 mmHg 80-90 O2 SATURATION ARTERIAL (BEAKER) (test avbu=526) 96.8 % 96.0-97.0 HCO3 ARTERIAL (BEAKER) (test yraj=233) 20 mmol/L 21-29 BASE EXCESS ARTERIAL (BEAKER) (test lyyp=848) -3.9 mmol/L -2.0-3.0 PATIENT TEMPERATURE (BEAKER) (test fmrz=1287) 37.0 C FIO2 (BEAKER) (test bahb=3796) RA HEMOGLOBIN AND [id number] 22:11:00* Test Item Value Reference Range Comments HEMOGLOBIN (BEAKER) (test cleg=623) 8.1 GM/DL 11.2-15.7 HEMATOCRIT (BEAKER) (test fmdq=981) 24.6 % 34.1-44.9 BLOOD GAS, [id number] 16:40:00* Test Item Value Reference Range Comments PH ARTERIAL (BEAKER) (test gfsz=250) 7.39 7.35-7.45 PCO2 ARTERIAL (BEAKER) (test qvyw=442) 35 mmHg 35-45 PO2 ARTERIAL (BEAKER) (test zdym=280) 142 mmHg 80-90 O2 SATURATION ARTERIAL (BEAKER) (test obrv=860) 98.8 % 96.0-97.0 HCO3 ARTERIAL (BEAKER) (test wcxv=864) 20 mmol/L 21-29 BASE EXCESS ARTERIAL (BEAKER) (test wdcd=050) -3.9 mmol/L -2.0-3.0 PATIENT TEMPERATURE (BEAKER) (test xfxl=9743) 37.8 C FIO2 (BEAKER) (test uqxi=3659) 2L SODIUM NA-STAT [id number] 16:40:00* Test Item Value Reference Range Comments SODIUM (BEAKER) (test pwkh=669) 138 meq/L 135-148 GLUCOSE-STAT [id number] 16:40:00* Test Item Value Reference Range Comments GLUCOSE RANDOM (BEAKER) (test okra=749) 197 mg/dL 70-110 HGB/HCT (H&H) - STAT [id number] 16:40:00* Test Item Value Reference Range Comments HEMOGLOBIN (BEAKER) (test vmdo=517) 8.6 g/dL 12.0-15.0 HEMATOCRIT (BEAKER) (test ubwm=073) 25.0 % 36.0-45.0 POTASSIUM-STAT [id number] 16:39:00* Test Item Value Reference Range Comments POTASSIUM (BEAKER) (test vjbg=411) 4.0 meq/L 3.6-5.5 POCT-GLUCOSE [id number] 15:12:00* Test Item Value Reference Range Comments POC-GLUCOSE METER (BEAKER) (test czjy=5142) 223 mg/dL 70-110 : TESTED AT [address], [address]: Child Welfare Caseworker/Manager Agricultural HR=[id number] for WISAM VIEIRA HEMOGLOBIN AND [id number] 13:48:00* Test Item Value Reference Range Comments HEMOGLOBIN (BEAKER) (test dbuv=494) 7.6 GM/DL 11.2-15.7 HEMATOCRIT (BEAKER) (test nort=961) 23.6 % 34.1-44.9 LACTIC ACID, [id number] 09:41:00* Test Item Value Reference Range Comments LACTATE BLOOD ARTERIAL (2) (BEAKER) (test qlxa=0381) 1.2 mmol/L 0.5-2.2 [id number] 09:16:00* Test Item Value Reference Range Comments POTASSIUM (BEAKER) (test hauy=109) 4.1 meq/L 3.5-5.1 Every 8 hours PRN for Creatinine greater than or equal to 2 mg/dL.MAGNESIUM 2019-06-18 09:16:00* Test Item Value Reference Range Comments MAGNESIUM (BEAKER) (test kaxw=621) 2.3 mg/dL 1.6-2.6 Every 8 hours PRN for Creatinine greater than or equal to 2 mg/dL.POCT-GLUCOSE [id number] 07:46:00* Test Item Value Reference Range Comments POC-GLUCOSE METER (BEAKER) (test dvvt=9290) 117 mg/dL 70-110 : TESTED AT [address], [address]: Child Welfare Caseworker/Manager Agricultural [id number] for WISAM VIEIRA CALCIUM, [id number] 07:45:00* Test Item Value Reference Range Comments CALCIUM IONIZED (BEAKER) (test pyeo=684) 1.14 mmol/L 1.12-1.27 PH, BLOOD (BEAKER) (test yvvw=3525) 7.38 BLOOD GAS, [id number] 07:45:00* Test Item Value Reference Range Comments PH ARTERIAL (BEAKER) (test jxgt=655) 7.38 7.35-7.45 PCO2 ARTERIAL (BEAKER) (test oysz=096) 38 mmHg 35-45 PO2 ARTERIAL (BEAKER) (test jcfu=398) 171 mmHg 80-90 O2 SATURATION ARTERIAL (BEAKER) (test jflp=006) 99.1 % 96.0-97.0 HCO3 ARTERIAL (BEAKER) (test vsyg=758) 22 mmol/L 21-29 BASE EXCESS ARTERIAL (BEAKER) (test kmef=745) -3.0 mmol/L -2.0-3.0 PATIENT TEMPERATURE (BEAKER) (test jhsp=0780) 37.2 C FIO2 (BEAKER) (test tkvw=1207) 40.0 % POCT-GLUCOSE [id number] 06:24:00* Test Item Value Reference Range Comments POC-GLUCOSE METER (BEAKER) (test eebt=0572) 117 mg/dL 70-110 : TESTED AT [facility] [address] [place], [address]: Child Welfare Caseworker/Manager Agricultural [phone]=[id number] for Steph Saravia, CHEST, 1 VIEW, NON [id number] 05:45:00while patient is intubated or has chest tubes.Reason for exam:->Status post CV SurgeryShould this be performed at the bedside?->YesFINAL REPORT CLINICAL INDICATION: Postop Comparison: 06/17/2019 The patient is rotated slightly to the right. The cardiomediastinal contours are stable. Central pulmonary vascular prominence and bilateral parenchymal opacities are unchanged. There is no pneumothorax. Support lines are stable. Signed: Cale Paul MDReport Verified Date/Time: 06/18/2019 05:45:03 C METABOLIC [id number] 05:28:00* Test Item Value Reference Range Comments SODIUM (BEAKER) (test onez=211) 146 meq/L 136-145 POTASSIUM (BEAKER) (test bhww=980) 4.1 meq/L 3.5-5.1 Specimen slightly hemolyzed CHLORIDE (BEAKER) (test jluz=873) 120 meq/L 98-107 CO2 (BEAKER) (test zlcx=987) 21 meq/L 22-29 BLOOD UREA NITROGEN (BEAKER) (test ssji=548) 17 mg/dL 7-21 CREATININE (BEAKER) (test dpxh=632) 0.79 mg/dL 0.57-1.25 Specimen slightly hemolyzed GLUCOSE RANDOM (BEAKER) (test eprn=396) 139 mg/dL 70-105 CALCIUM (BEAKER) (test zxlo=050) 7.6 mg/dL 8.4-10.2 EGFR (BEAKER) (test gexe=1424) 71 mL/min/1.73 sq m ESTIMATED GFR IS NOT ACCURATE CREATININE CLEARANCE IN PREDICTING GLOMERULAR FILTRATION RATE. ESTIMATED GFR IS NOT APPLICABLE FOR DIALYSIS PATIENTS. [id number] 05:13:00* Test Item Value Reference Range Comments MAGNESIUM (BEAKER) (test ppyk=103) 2.2 mg/dL 1.6-2.6 Specimen slightly hemolyzed [id number] 05:13:00* Test Item Value Reference Range Comments PHOSPHORUS (BEAKER) (test nzps=973) 3.7 mg/dL 2.3-4.7 Specimen slightly hemolyzed CALCIUM, [id number] 04:50:00* Test Item Value Reference Range Comments CALCIUM IONIZED (BEAKER) (test ghzy=551) 0.97 mmol/L 1.12-1.27 PH, BLOOD (BEAKER) (test ueot=6380) 7.34 CBC (HEMOGRAM ONLY)2019-06-18 04:48:00* Test Item Value Reference Range Comments WHITE BLOOD CELL COUNT (BEAKER) (test xweg=652) 8.9 K/ L 3.5-10.5 RED BLOOD CELL COUNT (BEAKER) (test wvhu=185) 2.65 M/ L 3.93-5.22 HEMOGLOBIN (BEAKER) (test yfdc=355) 8.3 GM/DL 11.2-15.7 HEMATOCRIT (BEAKER) (test pipc=705) 26.2 % 34.1-44.9 MEAN CORPUSCULAR VOLUME (BEAKER) (test lfkj=290) 98.9 fL 79.4-94.8 MEAN CORPUSCULAR HEMOGLOBIN (BEAKER) (test mgdp=404) 31.3 pg 25.6-32.2 MEAN CORPUSCULAR HEMOGLOBIN CONC (BEAKER) (test agul=047) 31.7 GM/DL 32.2-35.5 RED CELL DISTRIBUTION WIDTH (BEAKER) (test tqhj=387) 14.9 % 11.7-14.4 PLATELET COUNT (BEAKER) (test gifv=907) 157 K/CU MM 150-450 MEAN PLATELET VOLUME (BEAKER) (test hcof=354) 11.2 fL 9.4-12.3 NUCLEATED RED BLOOD CELLS (BEAKER) (test fiwi=976) 0 /100 WBC 0-0 OXYGEN SATURATION, [id number] 04:47:00* Test Item Value Reference Range Comments O2 SATURATION (MEASURED) (BEAKER) (test pxiz=6490) 92.3 % BLOOD GAS, [id number] 04:40:00* Test Item Value Reference Range Comments PH ARTERIAL (BEAKER) (test kdpk=490) 7.36 7.35-7.45 PCO2 ARTERIAL (BEAKER) (test xris=152) 38 mmHg 35-45 PO2 ARTERIAL (BEAKER) (test yjyi=503) 197 mmHg 80-90 O2 SATURATION ARTERIAL (BEAKER) (test vsjs=091) 99.3 % 96.0-97.0 HCO3 ARTERIAL (BEAKER) (test ssrv=252) 21 mmol/L 21-29 BASE EXCESS ARTERIAL (BEAKER) (test cmct=384) -4.2 mmol/L -2.0-3.0 PATIENT TEMPERATURE (BEAKER) (test uzgn=6808) 37.0 C POCT-GLUCOSE [id number] 04:21:00* Test Item Value Reference Range Comments POC-GLUCOSE METER (BEAKER) (test fuqm=0645) 116 mg/dL 70-110 : TESTED AT [address], [address]: Child Welfare Caseworker/Manager Agricultural UV=[id number] for Jazmyn Saraviagi POCT-GLUCOSE [id number] 03:07:00* Test Item Value Reference Range Comments POC-GLUCOSE METER (BEAKER) (test xrxd=2086) 112 mg/dL 70-110 : TESTED AT [address], [address]: Child Welfare Caseworker/Manager Agricultural QY=[id number] for Jazmyn Saraviagi POCT-GLUCOSE [id number] 02:24:00* Test Item Value Reference Range Comments POC-GLUCOSE METER (BEAKER) (test wzhm=2808) 137 mg/dL 70-110 : TESTED AT [address], [address]: Child Welfare Caseworker/Manager Agricultural TZ=[id number] for Manjit Jazmyngi POCT-GLUCOSE [id number] 01:52:00* Test Item Value Reference Range Comments POC-GLUCOSE METER (BEAKER) (test eloj=4113) 153 mg/dL 70-110 : TESTED AT [address], [address]: Child Welfare Caseworker/Manager Agricultural KL=[id number] for Manjit, Jazmyngi POCT-GLUCOSE [id number] 23:18:00* Test Item Value Reference Range Comments POC-GLUCOSE METER (BEAKER) (test unzd=5897) 138 mg/dL 70-110 : TESTED AT [address], [address]: Child Welfare Caseworker/Manager Agricultural NX=[id number] for Manjit, Jazmyngi POCT-GLUCOSE [id number] 23:17:00* Test Item Value Reference Range Comments POC-GLUCOSE METER (BEAKER) (test ywiz=4423) 145 mg/dL 70-110 : TESTED AT [place] [address] [facility], [address]: Child Welfare Caseworker/Manager Agricultural JZ=[id number] for Steph Saravia POCT-GLUCOSE [id number] 23:14:00* Test Item Value Reference Range Comments POC-GLUCOSE METER (BEAKER) (test ttmg=8080) 135 mg/dL 70-110 : TESTED AT [address], [address]: Child Welfare Caseworker/Manager Agricultural BG=[id number] for Steph Saravia POCT-GLUCOSE [id number] 23:13:00* Test Item Value Reference Range Comments POC-GLUCOSE METER (BEAKER) (test muhg=1524) 116 mg/dL 70-110 : TESTED AT [address], [address]: Child Welfare Caseworker/Manager Agricultural MC=[id number] for Steph Saravia [id number] 23:00:00* Test Item Value Reference Range Comments PHOSPHORUS (BEAKER) (test haoy=832) 1.1 mg/dL 2.3-4.7 [id number] 22:56:00* Test Item Value Reference Range Comments MAGNESIUM (BEAKER) (test worq=350) 2.0 mg/dL 1.6-2.6 LACTIC ACID, [id number] 22:52:00* Test Item Value Reference Range Comments LACTATE BLOOD ARTERIAL (2) (BEAKER) (test xsyk=5963) 3.9 mmol/L 0.5-2.2 HEMOGLOBIN AND [id number] 22:42:00* Test Item Value Reference Range Comments HEMOGLOBIN (BEAKER) (test jpkw=751) 7.5 GM/DL 11.2-15.7 HEMATOCRIT (BEAKER) (test lvlg=884) 23.4 % 34.1-44.9 SODIUM NA-STAT [id number] 22:38:00* Test Item Value Reference Range Comments SODIUM (BEAKER) (test yuwl=518) 142 meq/L 135-148 POTASSIUM-STAT [id number] 22:38:00* Test Item Value Reference Range Comments POTASSIUM (BEAKER) (test mcej=938) 3.8 meq/L 3.6-5.5 CALCIUM, [id number] 22:38:00* Test Item Value Reference Range Comments CALCIUM IONIZED (BEAKER) (test rgmq=972) 1.18 mmol/L 1.12-1.27 PH, BLOOD (BEAKER) (test pljm=3889) 7.38 BLOOD GAS, [id number] 22:38:00* Test Item Value Reference Range Comments PH ARTERIAL (BEAKER) (test male=277) 7.38 7.35-7.45 PCO2 ARTERIAL (BEAKER) (test axae=251) 34 mmHg 35-45 PO2 ARTERIAL (BEAKER) (test gbjg=529) 199 mmHg 80-90 O2 SATURATION ARTERIAL (BEAKER) (test iasx=400) 99.4 % 96.0-97.0 HCO3 ARTERIAL (BEAKER) (test tdzq=206) 20 mmol/L 21-29 BASE EXCESS ARTERIAL (BEAKER) (test ehrj=464) -4.6 mmol/L -2.0-3.0 PATIENT TEMPERATURE (BEAKER) (test ytsf=4333) 37.0 C FIO2 (BEAKER) (test errw=0312) 100.0 % GLUCOSE-STAT [id number] 22:38:00* Test Item Value Reference Range Comments GLUCOSE RANDOM (BEAKER) (test nrei=279) 150 mg/dL 70-110 HGB/HCT (H&H) - STAT [id number] 22:38:00* Test Item Value Reference Range Comments HEMOGLOBIN (BEAKER) (test nehp=196) 8.1 g/dL 12.0-15.0 HEMATOCRIT (BEAKER) (test ohiu=347) 24.0 % 36.0-45.0 OXYGEN SATURATION, [id number] 22:38:00* Test Item Value Reference Range Comments O2 SATURATION (MEASURED) (BEAKER) (test knmu=0204) 81.4 % LACTIC ACID, [id number] 21:09:00* Test Item Value Reference Range Comments LACTATE BLOOD VENOUS (2) (BEAKER) (test xlyu=3464) 4.4 mmol/L 0.5-2.2 BLOOD GAS, [id number] 19:15:00* Test Item Value Reference Range Comments PH ARTERIAL (BEAKER) (test xawz=135) 7.34 7.35-7.45 PCO2 ARTERIAL (BEAKER) (test fvgm=570) 37 mmHg 35-45 PO2 ARTERIAL (BEAKER) (test ndta=976) 192 mmHg 80-90 O2 SATURATION ARTERIAL (BEAKER) (test jslt=639) 99.2 % 96.0-97.0 HCO3 ARTERIAL (BEAKER) (test khrz=596) 19 mmol/L 21-29 BASE EXCESS ARTERIAL (BEAKER) (test gmvx=712) -5.5 mmol/L -2.0-3.0 PATIENT TEMPERATURE (BEAKER) (test gran=2088) 38.2 C FIO2 (BEAKER) (test qryi=0006) 40.0 % OXYGEN SATURATION, [id number] 19:14:00* Test Item Value Reference Range Comments O2 SATURATION (MEASURED) (BEAKER) (test tkur=9964) 72.5 % POCT-GLUCOSE [id number] 18:44:00* Test Item Value Reference Range Comments POC-GLUCOSE METER (BEAKER) (test ivxe=6863) 154 mg/dL 70-110 : TESTED AT [address], [address]: Child Welfare Caseworker/Manager Agricultural MK=[id number] for MATI NATH POCT-GLUCOSE [id number] 18:44:00* Test Item Value Reference Range Comments POC-GLUCOSE METER (BEAKER) (test nkbc=4390) 150 mg/dL 70-110 : TESTED AT [address], [address]: Child Welfare Caseworker/Manager Agricultural AX=[id number] for MATI NATH LACTIC ACID, [id number] 18:08:00* Test Item Value Reference Range Comments LACTATE BLOOD VENOUS (2) (BEAKER) (test ipxf=9776) 5.5 mmol/L 0.5-2.2 [id number] 18:06:00* Test Item Value Reference Range Comments POTASSIUM (BEAKER) (test rwgc=324) 4.3 meq/L 3.5-5.1 Specimen slightly hemolyzed [id number] 17:54:00* Test Item Value Reference Range Comments ACTIVATED CLOTTING TIME (BEAKER) (test rslz=768) 109 sec Reference Range: 74-137 seconds, Baseline/TESTED AT [place] [address] [id number] 17:54:00* Test Item Value Reference Range Comments ACTIVATED CLOTTING TIME (BEAKER) (test hogu=540) 753 sec Reference Range: 74-137 seconds, Baseline/TESTED AT [place] [address] [id number] 17:54:00* Test Item Value Reference Range Comments ACTIVATED CLOTTING TIME (BEAKER) (test hpot=366) 841 sec Reference Range: 74-137 seconds, Baseline/TESTED AT [place] [address] [id number] 17:54:00* Test Item Value Reference Range Comments ACTIVATED CLOTTING TIME (BEAKER) (test iioy=218) 808 sec Reference Range: 74-137 seconds, Baseline/TESTED AT [place] [address] [id number] 17:54:00* Test Item Value Reference Range Comments ACTIVATED CLOTTING TIME (BEAKER) (test fsow=933) 890 sec Reference Range: 74-137 seconds, Baseline/TESTED AT [place] [address] [id number] 17:54:00* Test Item Value Reference Range Comments ACTIVATED CLOTTING TIME (BEAKER) (test jjvj=774) 599 sec Reference Range: 74-137 seconds, Baseline/TESTED AT [place] [address] [id number] 17:54:00* Test Item Value Reference Range Comments ACTIVATED CLOTTING TIME (BEAKER) (test qrkd=813) 98 sec Reference Range: 74- 137 seconds, Baseline/TESTED AT [place] [address] POCT-GLUCOSE [id number] 17:08:00* Test Item Value Reference Range Comments POC-GLUCOSE METER (BEAKER) (test lsda=1361) 158 mg/dL 70-110 : TESTED AT [place] [id number]: Child Welfare Caseworker/Manager Agricultural VS=[id number] for MATI NATH PLATELET [id number] 16:10:00* Test Item Value Reference Range Comments PLATELET COUNT (BEAKER) (test hbyk=304) 263 K/CU MM 150-450 CBC W/PLT COUNT & AUTO [id number] 16:08:00* Test Item Value Reference Range Comments WHITE BLOOD CELL COUNT (BEAKER) (test uqko=480) 14.2 K/ L 3.5-10.5 RED BLOOD CELL COUNT (BEAKER) (test iyxc=198) 3.38 M/ L 3.93-5.22 HEMOGLOBIN (BEAKER) (test ojan=546) 10.6 GM/DL 11.2-15.7 HEMATOCRIT (BEAKER) (test hxvc=256) 33.6 % 34.1-44.9 MEAN CORPUSCULAR VOLUME (BEAKER) (test ggip=585) 99.4 fL 79.4-94.8 MEAN CORPUSCULAR HEMOGLOBIN (BEAKER) (test muci=513) 31.4 pg 25.6-32.2 MEAN CORPUSCULAR HEMOGLOBIN CONC (BEAKER) (test xopd=962) 31.5 GM/DL 32.2-35.5 RED CELL DISTRIBUTION WIDTH (BEAKER) (test hhuy=432) 13.7 % 11.7-14.4 PLATELET COUNT (BEAKER) (test ujkr=923) 263 K/CU MM 150-450 MEAN PLATELET VOLUME (BEAKER) (test lvde=499) 10.5 fL 9.4-12.3 NUCLEATED RED BLOOD CELLS (BEAKER) (test htxi=369) 0 /100 WBC 0-0 NEUTROPHILS RELATIVE PERCENT (BEAKER) (test pcyy=993) 81 % LYMPHOCYTES RELATIVE PERCENT (BEAKER) (test tser=922) 8 % MONOCYTES RELATIVE PERCENT (BEAKER) (test dcag=564) 9 % EOSINOPHILS RELATIVE PERCENT (BEAKER) (test agej=820) 1 % BASOPHILS RELATIVE PERCENT (BEAKER) (test uskq=333) 0 % NEUTROPHILS ABSOLUTE COUNT (BEAKER) (test dhyg=287) 11.52 K/ L 1.56-6.13 LYMPHOCYTES ABSOLUTE COUNT (BEAKER) (test mhnc=405) 1.20 K/ L 1.18-3.74 MONOCYTES ABSOLUTE COUNT (BEAKER) (test xvqu=682) 1.30 K/ L 0.24-0.36 EOSINOPHILS ABSOLUTE COUNT (BEAKER) (test lfxw=232) 0.07 K/ L 0.04-0.36 BASOPHILS ABSOLUTE COUNT (BEAKER) (test hyoq=724) 0.03 K/ L 0.01-0.08 IMMATURE GRANULOCYTES-RELATIVE PERCENT (BEAKER) (test vqip=6339) 1 % 0-1 CBC W/PLT COUNT & AUTO [id number] 16:08:00* Test Item Value Reference Range Comments WHITE BLOOD CELL COUNT (BEAKER) (test izgm=034) 16.5 K/ L 3.5-10.5 RED BLOOD CELL COUNT (BEAKER) (test zcik=320) 2.85 M/ L 3.93-5.22 HEMOGLOBIN (BEAKER) (test bxgm=850) 9.2 GM/DL 11.2-15.7 HEMATOCRIT (BEAKER) (test jvbo=484) 28.7 % 34.1-44.9 MEAN CORPUSCULAR VOLUME (BEAKER) (test yjat=170) 100.7 fL 79.4-94.8 MEAN CORPUSCULAR HEMOGLOBIN (BEAKER) (test evfw=565) 32.3 pg 25.6-32.2 MEAN CORPUSCULAR HEMOGLOBIN CONC (BEAKER) (test jhyw=004) 32.1 GM/DL 32.2-35.5 RED CELL DISTRIBUTION WIDTH (BEAKER) (test uwzl=018) 13.7 % 11.7-14.4 PLATELET COUNT (BEAKER) (test paqz=979) 299 K/CU MM 150-450 MEAN PLATELET VOLUME (BEAKER) (test oefu=916) 10.8 fL 9.4-12.3 NUCLEATED RED BLOOD CELLS (BEAKER) (test oqtx=501) 0 /100 WBC 0-0 NEUTROPHILS RELATIVE PERCENT (BEAKER) (test wakc=449) 80 % LYMPHOCYTES RELATIVE PERCENT (BEAKER) (test vukv=993) 9 % MONOCYTES RELATIVE PERCENT (BEAKER) (test qmdv=378) 10 % EOSINOPHILS RELATIVE PERCENT (BEAKER) (test jpcs=611) 1 % BASOPHILS RELATIVE PERCENT (BEAKER) (test duyp=771) 0 % NEUTROPHILS ABSOLUTE COUNT (BEAKER) (test wqug=360) 13.16 K/ L 1.56-6.13 LYMPHOCYTES ABSOLUTE COUNT (BEAKER) (test xyzp=597) 1.54 K/ L 1.18-3.74 MONOCYTES ABSOLUTE COUNT (BEAKER) (test eofu=397) 1.61 K/ L 0.24-0.36 EOSINOPHILS ABSOLUTE COUNT (BEAKER) (test yrqg=555) 0.09 K/ L 0.04-0.36 BASOPHILS ABSOLUTE COUNT (BEAKER) (test tznc=190) 0.04 K/ L 0.01-0.08 IMMATURE GRANULOCYTES-RELATIVE PERCENT (BEAKER) (test ackt=7913) 1 % 0-1 RAD, CHEST, 1 VIEW, NON [id number] 15:57:00Reason for exam:->Status post CV Surgery post op day 0Should this be performed at the bedside?->YesFINAL REPORT EXAM: Frontal chest radiograph HISTORY PROVIDED: Status post cardiovascular surgery postop day 0 COMPARISON: Chest CT 06/11/2019 IMPRESSION:The tip of an endotracheal tube terminates approximately 5.6 cm above the kelly. A right IJ approach [place] catheter has been placed with the tip projecting over the expected location of the distal pulmonary outflow tract/main pulmonary artery. A left thoracostomy tube and mid chest mediastinal drain are in place. The tip of an enteric tube projects over the expected location of the stomach. Small bilateral pleural effusions are suspected with mild central pulmonary vascular congestion. No discernible pneumothorax. The cardiac silhoue tte is within normal limits for size. Sternotomy wires are noted. No acute osseo us abnormality. Signed: Shadia Henley MDReport Verified Date/Time: 019 15:57:11 [facility] Electronically sign ed by: SHADIA HENLEY on 06/17/2019 03:57 PM LACTIC ACID, [id number] 15:51:00* Test Item Value Reference Range Comments LACTATE BLOOD VENOUS (2) (BEAKER) (test ukkv=0262) 5.3 mmol/L 0.5-2.2 Specimen slightly hemolyzed PROTHROMBIN TIME/[id number] 15:35:00* Test Item Value Reference Range Comments PROTIME (BEAKER) (test cxyl=362) 16.5 seconds 11.9-14.2 INR (BEAKER) (test epnt=336) 1.4 <=5.9 Effective 01/09/2019: PT Reference Range ChangeNew: 11.9-14.2 Previous: 11.7-14. 7RECOMMENDED COUMADIN/WARFARIN INR THERAPY RANGESSTANDARD DOSE: 2.0-3.0 Include s: PROPHYLAXIS for venous thrombosis, systemic embolization; TREATMENT for venou s thrombosis and/or pulmonary embolus.HIGH RISK: Target INR is 2.5-3.5 for patie nts wiht mechanical heart valves.[id number] 15:35:00* Test Item Value Reference Range Comments FIBRINOGEN LEVEL (BEAKER) (test swpr=875) 257 mg/dl 225-434 [id number] 15:35:00* Test Item Value Reference Range Comments PARTIAL THROMBOPLASTIN TIME (BEAKER) (test cnph=076) 35.5 seconds 22.5-36.0 [id number] 15:35:00* Test Item Value Reference Range Comments MAGNESIUM (BEAKER) (test jmip=432) 2.3 mg/dL 1.6-2.6 Specimen slightly hemolyzed [id number] 15:35:00* Test Item Value Reference Range Comments PHOSPHORUS (BEAKER) (test oyla=049) 2.4 mg/dL 2.3-4.7 Specimen slightly hemolyzed BASIC METABOLIC [id number] 15:35:00* Test Item Value Reference Range Comments SODIUM (BEAKER) (test vuxv=984) 146 meq/L 136-145 POTASSIUM (BEAKER) (test boga=481) 3.6 meq/L 3.5-5.1 Specimen slightly hemolyzed CHLORIDE (BEAKER) (test iumd=470) 116 meq/L 98-107 CO2 (BEAKER) (test vqmg=718) 21 meq/L 22-29 BLOOD UREA NITROGEN (BEAKER) (test wqzk=467) 16 mg/dL 7-21 CREATININE (BEAKER) (test sfpj=645) 0.92 mg/dL 0.57-1.25 Specimen slightly hemolyzed GLUCOSE RANDOM (BEAKER) (test wuph=645) 230 mg/dL 70-105 CALCIUM (BEAKER) (test nbjf=523) 9.5 mg/dL 8.4-10.2 EGFR (BEAKER) (test mmad=2869) 60 mL/min/1.73 sq m ESTIMATED GFR IS NOT ACCURATE CREATININE CLEARANCE IN PREDICTING GLOMERULAR FILTRATION RATE. ESTIMATED GFR IS NOT APPLICABLE FOR DIALYSIS PATIENTS. CALCIUM, [id number] 15:14:00* Test Item Value Reference Range Comments CALCIUM IONIZED (BEAKER) (test dffx=644) 1.25 mmol/L 1.12-1.27 PH, BLOOD (BEAKER) (test bmzc=3362) 7.32 OXYGEN SATURATION, [id number] 15:14:00* Test Item Value Reference Range Comments O2 SATURATION (MEASURED) (BEAKER) (test zpdi=3821) 72.1 % BLOOD GAS, [id number] 15:14:00* Test Item Value Reference Range Comments PH ARTERIAL (BEAKER) (test dcqp=638) 7.33 7.35-7.45 PCO2 ARTERIAL (BEAKER) (test bwpf=440) 40 mmHg 35-45 PO2 ARTERIAL (BEAKER) (test pmth=078) 287 mmHg 80-90 O2 SATURATION ARTERIAL (BEAKER) (test usar=382) 99.6 % 96.0-97.0 HCO3 ARTERIAL (BEAKER) (test vkqg=609) 21 mmol/L 21-29 BASE EXCESS ARTERIAL (BEAKER) (test cewe=841) -5.1 mmol/L -2.0-3.0 PATIENT TEMPERATURE (BEAKER) (test whhx=8868) 36.1 C FIO2 (BEAKER) (test vimk=6949) 60.0 % [id number] 15:05:00* Test Item Value Reference Range Comments MAGNESIUM (BEAKER) (test icxe=879) 2.0 mg/dL 1.6-2.6 BASIC METABOLIC [id number] 14:26:00* Test Item Value Reference Range Comments SODIUM (BEAKER) (test oygi=606) 141 meq/L 136-145 POTASSIUM (BEAKER) (test ykll=252) 4.1 meq/L 3.5-5.1 CHLORIDE (BEAKER) (test ubff=097) 107 meq/L 98-107 CO2 (BEAKER) (test zbcj=488) 28 meq/L 22-29 BLOOD UREA NITROGEN (BEAKER) (test inji=247) 19 mg/dL 7-21 CREATININE (BEAKER) (test unfk=011) 0.84 mg/dL 0.57-1.25 GLUCOSE RANDOM (BEAKER) (test gcrn=298) 108 mg/dL 70-105 CALCIUM (BEAKER) (test zlcv=864) 9.2 mg/dL 8.4-10.2 EGFR (BEAKER) (test bqpq=6923) 66 mL/min/1.73 sq m ESTIMATED GFR IS NOT ACCURATE CREATININE CLEARANCE IN PREDICTING GLOMERULAR FILTRATION RATE. ESTIMATED GFR IS NOT APPLICABLE FOR DIALYSIS PATIENTS. [id number] 14:26:00* Test Item Value Reference Range Comments PHOSPHORUS (BEAKER) (test pcob=756) 3.1 mg/dL 2.3-4.7 THROMBOELASTOGRAPH (TEG)2019-06-17 13:58:00* Test Item Value Reference Range Comments TEG ACTIVATED CLOTTING TIME (BEAKER) (test hfes=8435) 5.1 minutes 4.0-7.0 TEG FIBRINOGEN ACTIVITY (BEAKER) (test blkn=0768) 68.0 degrees 61.0-73.0 TEG PLT. AGGREGATION (BEAKER) (test cvyc=9741) 51.0 MM 55.0-65.0 TGH ACTIVATED CLOTTING TIME (BEAKER) (test xkkl=9000) 5.3 minutes 4.0-7.0 TGH FIBRINOGEN ACTIVITY (BEAKER) (test gfbp=6467) 70.6 degrees 61.0-73.0 TGH PLT. AGGREGATION (BEAKER) (test vztx=9920) 59.0 MM 55.0-65.0 PROTHROMBIN TIME/[id number] 13:31:00* Test Item Value Reference Range Comments PROTIME (BEAKER) (test zhzt=447) 19.4 seconds 11.9-14.2 INR (BEAKER) (test itdl=974) 1.7 <=5.9 Effective 01/09/2019: PT Reference Range ChangeNew: 11.9-14.2 Previous: 11.7-14. 7RECOMMENDED COUMADIN/WARFARIN INR THERAPY RANGESSTANDARD DOSE: 2.0-3.0 Include s: PROPHYLAXIS for venous thrombosis, systemic embolization; TREATMENT for venou s thrombosis and/or pulmonary embolus.HIGH RISK: Target INR is 2.5-3.5 for patie nts wiht mechanical heart valves.[id number] 13:31:00* Test Item Value Reference Range Comments FIBRINOGEN LEVEL (BEAKER) (test uwtf=124) 206 mg/dl 225-434 [id number] 13:31:00* Test Item Value Reference Range Comments PARTIAL THROMBOPLASTIN TIME (BEAKER) (test erdg=025) 37.0 seconds 22.5-36.0 CBC W/PLT COUNT & AUTO [id number] 13:23:00* Test Item Value Reference Range Comments WHITE BLOOD CELL COUNT (BEAKER) (test dkoh=568) 17.2 K/ L 3.5-10.5 RED BLOOD CELL COUNT (BEAKER) (test hjnc=180) 2.50 M/ L 3.93-5.22 HEMOGLOBIN (BEAKER) (test mlir=317) 8.0 GM/DL 11.2-15.7 HEMATOCRIT (BEAKER) (test znao=270) 24.9 % 34.1-44.9 MEAN CORPUSCULAR VOLUME (BEAKER) (test rsmp=164) 99.6 fL 79.4-94.8 MEAN CORPUSCULAR HEMOGLOBIN (BEAKER) (test yagt=207) 32.0 pg 25.6-32.2 MEAN CORPUSCULAR HEMOGLOBIN CONC (BEAKER) (test jmkp=635) 32.1 GM/DL 32.2-35.5 RED CELL DISTRIBUTION WIDTH (BEAKER) (test urtl=648) 13.6 % 11.7-14.4 PLATELET COUNT (BEAKER) (test djok=655) 100 K/CU MM 150-450 MEAN PLATELET VOLUME (BEAKER) (test fcns=874) 10.7 fL 9.4-12.3 NUCLEATED RED BLOOD CELLS (BEAKER) (test lgbq=651) 0 /100 WBC 0-0 NEUTROPHILS RELATIVE PERCENT (BEAKER) (test kspg=493) 75 % LYMPHOCYTES RELATIVE PERCENT (BEAKER) (test enxn=839) 20 % MONOCYTES RELATIVE PERCENT (BEAKER) (test clal=941) 4 % EOSINOPHILS RELATIVE PERCENT (BEAKER) (test ijgr=901) 1 % BASOPHILS RELATIVE PERCENT (BEAKER) (test eebo=419) 0 % NEUTROPHILS ABSOLUTE COUNT (BEAKER) (test bmhv=659) 12.91 K/ L 1.56-6.13 LYMPHOCYTES ABSOLUTE COUNT (BEAKER) (test ttit=882) 3.43 K/ L 1.18-3.74 MONOCYTES ABSOLUTE COUNT (BEAKER) (test vebc=327) 0.60 K/ L 0.24-0.36 EOSINOPHILS ABSOLUTE COUNT (BEAKER) (test xbtu=988) 0.12 K/ L 0.04-0.36 BASOPHILS ABSOLUTE COUNT (BEAKER) (test tnow=515) 0.04 K/ L 0.01-0.08 IMMATURE GRANULOCYTES-RELATIVE PERCENT (BEAKER) (test cyaj=0406) 1 % 0-1 BLOOD GAS, [id number] 13:12:00* Test Item Value Reference Range Comments PH ARTERIAL (BEAKER) (test adxg=982) 7.40 7.35-7.45 PCO2 ARTERIAL (BEAKER) (test iwmp=651) 37 mmHg 35-45 PO2 ARTERIAL (BEAKER) (test lefb=284) 454 mmHg 80-90 O2 SATURATION ARTERIAL (BEAKER) (test mymz=301) 99.9 % 96.0-97.0 HCO3 ARTERIAL (BEAKER) (test pwio=155) 23 mmol/L 21-29 BASE EXCESS ARTERIAL (BEAKER) (test zixx=906) -2.3 mmol/L -2.0-3.0 PATIENT TEMPERATURE (BEAKER) (test mjlj=6274) 36.0 C FIO2 (BEAKER) (test csag=3615) 100.0 % CALCIUM, [id number] 13:12:00* Test Item Value Reference Range Comments CALCIUM IONIZED (BEAKER) (test xrzm=952) 1.40 mmol/L 1.12-1.27 PH, BLOOD (BEAKER) (test zhnm=1903) 7.39 GLUCOSE-STAT [id number] 13:12:00* Test Item Value Reference Range Comments GLUCOSE RANDOM (BEAKER) (test akpl=697) 228 mg/dL 70-110 HGB/HCT (H&H) - STAT [id number] 13:12:00* Test Item Value Reference Range Comments HEMOGLOBIN (BEAKER) (test csuj=522) 8.4 g/dL 12.0-15.0 HEMATOCRIT (BEAKER) (test tapn=464) 25.0 % 36.0-45.0 SODIUM NA-STAT [id number] 13:11:00* Test Item Value Reference Range Comments SODIUM (BEAKER) (test wyhq=350) 139 meq/L 135-148 POTASSIUM-STAT [id number] 13:11:00* Test Item Value Reference Range Comments POTASSIUM (BEAKER) (test tkxs=350) 3.7 meq/L 3.6-5.5 BLOOD GAS, [id number] 12:28:00* Test Item Value Reference Range Comments PH ARTERIAL (BEAKER) (test xxoi=089) 7.37 7.35-7.45 PCO2 ARTERIAL (BEAKER) (test sptr=444) 46 mmHg 35-45 PO2 ARTERIAL (BEAKER) (test iran=046) 264 mmHg 80-90 O2 SATURATION ARTERIAL (BEAKER) (test dgvh=632) 99.6 % 96.0-97.0 HCO3 ARTERIAL (BEAKER) (test ommi=803) 26 mmol/L 21-29 BASE EXCESS ARTERIAL (BEAKER) (test ycnt=088) 0.5 mmol/L -2.0-3.0 PATIENT TEMPERATURE (BEAKER) (test dvrz=3092) 36.5 C FIO2 (BEAKER) (test zltf=3870) 75.0 % GLUCOSE-STAT [id number] 12:28:00* Test Item Value Reference Range Comments GLUCOSE RANDOM (BEAKER) (test rqhp=842) 204 mg/dL 70-110 HGB/HCT (H&H) - STAT [id number] 12:28:00* Test Item Value Reference Range Comments HEMOGLOBIN (BEAKER) (test asqs=437) 9.0 g/dL 12.0-15.0 HEMATOCRIT (BEAKER) (test nmkc=324) 26.0 % 36.0-45.0 SODIUM NA-STAT [id number] 12:27:00* Test Item Value Reference Range Comments SODIUM (BEAKER) (test ygiz=229) 138 meq/L 135-148 POTASSIUM-STAT [id number] 12:27:00* Test Item Value Reference Range Comments POTASSIUM (BEAKER) (test perm=294) 5.2 meq/L 3.6-5.5 PLATELET AGGREGATION: FUNCTION [id number] 12:09:00* Test Item Value Reference Range Comments [id number] (BEAKER) (test dtfj=8854) Zenaida Viera MD (electronic signature) PLATELET COUNT AGG (BEAKER) (test rpwl=8209) 199 K/CU MM 150-450 PLATELET RICH PLASMA(BEAKER) (test ofdx=3039) 299 k/cu mm 200-300 PLATELET FUNCTION SCREEN INTERPRETATION (BEAKER) (test zixs=7847) Decreased aggregation with ADP which indicates platelet dysfunction that may be due to medication effect, uremia, or other platelet function disorders. Clinical correlation is required. Platelet Function Screen results may be falsely low with platelet counts< 75,000/cu mm.BLOOD GAS, [id number] 11:56:00* Test Item Value Reference Range Comments PH ARTERIAL (BEAKER) (test kccd=130) 7.41 7.35-7.45 PCO2 ARTERIAL (BEAKER) (test lenl=225) 44 mmHg 35-45 PO2 ARTERIAL (BEAKER) (test ultr=647) 309 mmHg 80-90 O2 SATURATION ARTERIAL (BEAKER) (test vjcz=435) 99.7 % 96.0-97.0 HCO3 ARTERIAL (BEAKER) (test fnrq=366) 28 mmol/L 21-29 BASE EXCESS ARTERIAL (BEAKER) (test jeyv=098) 2.2 mmol/L -2.0-3.0 PATIENT TEMPERATURE (BEAKER) (test crgg=3222) 35.5 C FIO2 (BEAKER) (test lreq=2015) 80.0 % POTASSIUM-STAT [id number] 11:56:00* Test Item Value Reference Range Comments POTASSIUM (BEAKER) (test bkaz=598) 5.9 meq/L 3.6-5.5 GLUCOSE-STAT [id number] 11:56:00* Test Item Value Reference Range Comments GLUCOSE RANDOM (BEAKER) (test clwa=117) 233 mg/dL 70-110 HGB/HCT (H&H) - STAT [id number] 11:56:00* Test Item Value Reference Range Comments HEMOGLOBIN (BEAKER) (test oneg=079) 8.0 g/dL 12.0-15.0 HEMATOCRIT (BEAKER) (test brln=439) 24.0 % 36.0-45.0 SODIUM NA-STAT [id number] 11:55:00* Test Item Value Reference Range Comments SODIUM (BEAKER) (test iihl=995) 135 meq/L 135-148 POTASSIUM-STAT [id number] 11:29:00* Test Item Value Reference Range Comments POTASSIUM (BEAKER) (test ajll=534) 6.1 meq/L 3.6-5.5 BLOOD GAS, [id number] 11:25:00* Test Item Value Reference Range Comments PH ARTERIAL (BEAKER) (test nknd=373) 7.41 7.35-7.45 PCO2 ARTERIAL (BEAKER) (test xjiw=494) 39 mmHg 35-45 PO2 ARTERIAL (BEAKER) (test fkrp=013) 344 mmHg 80-90 O2 SATURATION ARTERIAL (BEAKER) (test ljpn=554) 99.8 % 96.0-97.0 HCO3 ARTERIAL (BEAKER) (test sesa=031) 26 mmol/L 21-29 BASE EXCESS ARTERIAL (BEAKER) (test raio=541) -0.7 mmol/L -2.0-3.0 PATIENT TEMPERATURE (BEAKER) (test ihjb=9186) 30.0 C FIO2 (BEAKER) (test qrzr=7829) 70.0 % SODIUM NA-STAT [id number] 11:25:00* Test Item Value Reference Range Comments SODIUM (BEAKER) (test obaf=227) 131 meq/L 135-148 GLUCOSE-STAT [id number] 11:25:00* Test Item Value Reference Range Comments GLUCOSE RANDOM (BEAKER) (test dnbe=012) 258 mg/dL 70-110 HGB/HCT (H&H) - STAT [id number] 11:25:00* Test Item Value Reference Range Comments HEMOGLOBIN (BEAKER) (test dwuv=912) 8.0 g/dL 12.0-15.0 HEMATOCRIT (BEAKER) (test crrm=698) 24.0 % 36.0-45.0 POTASSIUM-STAT [id number] 10:53:00* Test Item Value Reference Range Comments POTASSIUM (BEAKER) (test eveo=883) 4.1 meq/L 3.6-5.5 BLOOD GAS, [id number] 10:53:00* Test Item Value Reference Range Comments PH ARTERIAL (BEAKER) (test eysw=331) 7.33 7.35-7.45 PCO2 ARTERIAL (BEAKER) (test duhm=666) 46 mmHg 35-45 PO2 ARTERIAL (BEAKER) (test sczn=493) 418 mmHg 80-90 O2 SATURATION ARTERIAL (BEAKER) (test zeri=976) 99.8 % 96.0-97.0 HCO3 ARTERIAL (BEAKER) (test urig=171) 25 mmol/L 21-29 BASE EXCESS ARTERIAL (BEAKER) (test drel=770) -1.9 mmol/L -2.0-3.0 PATIENT TEMPERATURE (BEAKER) (test cpge=8827) 34.0 C FIO2 (BEAKER) (test beaa=9125) 80.0 % SODIUM NA-STAT [id number] 10:53:00* Test Item Value Reference Range Comments SODIUM (BEAKER) (test ajpo=087) 130 meq/L 135-148 GLUCOSE-STAT [id number] 10:53:00* Test Item Value Reference Range Comments GLUCOSE RANDOM (BEAKER) (test rdmn=544) 159 mg/dL 70-110 HGB/HCT (H&H) - STAT [id number] 10:53:00* Test Item Value Reference Range Comments HEMOGLOBIN (BEAKER) (test ryrg=779) 7.9 g/dL 12.0-15.0 HEMATOCRIT (BEAKER) (test lkeb=925) 23.0 % 36.0-45.0 OXYGEN SATURATION, [id number] 10:16:00* Test Item Value Reference Range Comments O2 SATURATION (MEASURED) (BEAKER) (test evfh=9659) 86.3 % OXYGEN SATURATION, [id number] 10:12:00* Test Item Value Reference Range Comments O2 SATURATION (MEASURED) (BEAKER) (test yqyg=1300) 98.9 % BLOOD GAS, [id number] 09:37:00* Test Item Value Reference Range Comments PH ARTERIAL (BEAKER) (test ajdd=967) 7.43 7.35-7.45 PCO2 ARTERIAL (BEAKER) (test lpcs=622) 37 mmHg 35-45 PO2 ARTERIAL (BEAKER) (test umiu=100) 441 mmHg 80-90 O2 SATURATION ARTERIAL (BEAKER) (test nutl=918) 99.9 % 96.0-97.0 HCO3 ARTERIAL (BEAKER) (test prwx=348) 25 mmol/L 21-29 BASE EXCESS ARTERIAL (BEAKER) (test csla=789) 0.3 mmol/L -2.0-3.0 PATIENT TEMPERATURE (BEAKER) (test edop=5006) 35.0 C FIO2 (BEAKER) (test yxgz=5806) 100.0 % GLUCOSE-STAT [id number] 09:37:00* Test Item Value Reference Range Comments GLUCOSE RANDOM (BEAKER) (test hxgr=124) 157 mg/dL 70-110 HGB/HCT (H&H) - STAT [id number] 09:37:00* Test Item Value Reference Range Comments HEMOGLOBIN (BEAKER) (test xlzj=531) 11.3 g/dL 12.0-15.0 HEMATOCRIT (BEAKER) (test kafw=362) 33.0 % 36.0-45.0 SODIUM NA-STAT [id number] 09:36:00* Test Item Value Reference Range Comments SODIUM (BEAKER) (test xfrh=785) 138 meq/L 135-148 POTASSIUM-STAT [id number] 09:36:00* Test Item Value Reference Range Comments POTASSIUM (BEAKER) (test xasw=194) 4.2 meq/L 3.6-5.5 CALCIUM, [id number] 09:36:00* Test Item Value Reference Range Comments CALCIUM IONIZED (BEAKER) (test thfp=727) 1.13 mmol/L 1.12-1.27 PH, BLOOD (BEAKER) (test tljf=7474) 7.41 HEMOGLOBIN [id number] 09:34:00* Test Item Value Reference Range Comments HEMOGLOBIN A1C (BEAKER) (test yrhc=413) 6.1 % 4.3-6.1 CBC W/PLT COUNT & AUTO [id number] 07:08:00* Test Item Value Reference Range Comments WHITE BLOOD CELL COUNT (BEAKER) (test vlsi=985) 4.2 K/ L 3.5-10.5 RED BLOOD CELL COUNT (BEAKER) (test hwho=688) 3.74 M/ L 3.93-5.22 HEMOGLOBIN (BEAKER) (test mvmm=822) 11.6 GM/DL 11.2-15.7 HEMATOCRIT (BEAKER) (test snfu=684) 35.9 % 34.1-44.9 MEAN CORPUSCULAR VOLUME (BEAKER) (test cetd=422) 96.0 fL 79.4-94.8 MEAN CORPUSCULAR HEMOGLOBIN (BEAKER) (test mtqv=932) 31.0 pg 25.6-32.2 MEAN CORPUSCULAR HEMOGLOBIN CONC (BEAKER) (test xgzj=280) 32.3 GM/DL 32.2-35.5 RED CELL DISTRIBUTION WIDTH (BEAKER) (test lnfv=723) 13.3 % 11.7-14.4 PLATELET COUNT (BEAKER) (test xrkq=587) 176 K/CU MM 150-450 MEAN PLATELET VOLUME (BEAKER) (test llve=268) 10.5 fL 9.4-12.3 NUCLEATED RED BLOOD CELLS (BEAKER) (test ccee=986) 0 /100 WBC 0-0 NEUTROPHILS RELATIVE PERCENT (BEAKER) (test kymj=036) 51 % LYMPHOCYTES RELATIVE PERCENT (BEAKER) (test vckk=497) 32 % MONOCYTES RELATIVE PERCENT (BEAKER) (test hiph=254) 11 % EOSINOPHILS RELATIVE PERCENT (BEAKER) (test ohqg=961) 5 % BASOPHILS RELATIVE PERCENT (BEAKER) (test uvib=000) 1 % NEUTROPHILS ABSOLUTE COUNT (BEAKER) (test gtvs=750) 2.12 K/ L 1.56-6.13 LYMPHOCYTES ABSOLUTE COUNT (BEAKER) (test fvka=236) 1.34 K/ L 1.18-3.74 MONOCYTES ABSOLUTE COUNT (BEAKER) (test ehdq=979) 0.44 K/ L 0.24-0.36 EOSINOPHILS ABSOLUTE COUNT (BEAKER) (test vscp=546) 0.21 K/ L 0.04-0.36 BASOPHILS ABSOLUTE COUNT (BEAKER) (test aqku=698) 0.05 K/ L 0.01-0.08 IMMATURE GRANULOCYTES-RELATIVE PERCENT (BEAKER) (test vcyj=3787) 1 % 0-1 LIPID [id number] 07:03:00* Test Item Value Reference Range Comments TRIGLYCERIDES (BEAKER) (test rqvl=531) 64 mg/dL CHOLESTEROL (BEAKER) (test svrb=298) 144 mg/dL HDL CHOLESTEROL (BEAKER) (test vurp=843) 40 mg/dL LDL CHOLESTEROL CALCULATED (BEAKER) (test qydi=475) 91 mg/dL Triglyceride Reference Range: Low Risk <150 Borderline 150-199 High Risk 200-499 Very High Risk >=500Cholesterol Reference Range: Low Risk <200 Borderline 200-239 High Risk >240HDL Cholesterol Reference Range: Low Risk >=60 High Risk <40LDL Cholesterol Reference Range: Optimal <100 Near Optimal 100-129 Borderline 130-159 High 160-189 Very High >=190 POCT- GLUCOSE [id number] 05:45:00* Test Item Value Reference Range Comments POC-GLUCOSE METER (BEAKER) (test zugu=4658) 113 mg/dL 70-110 : TESTED AT [place] [id number] [facility], [address]: Child Welfare Caseworker/Manager Agricultural GC=[id number] for STEPHY, AN POCT-GLUCOSE [id number] 21:52:00* Test Item Value Reference Range Comments POC-GLUCOSE METER (BEAKER) (test dezt=7360) 132 mg/dL 70-110 : TESTED AT [address], [address]: Child Welfare Caseworker/Manager Agricultural NV=[id number] for BEN BELL POCT-GLUCOSE [id number] 18:53:00* Test Item Value Reference Range Comments POC-GLUCOSE METER (BEAKER) (test vdgg=8060) 143 mg/dL 70-110 : TESTED AT [address], [address]: Child Welfare Caseworker/Manager Agricultural BP=[id number] for PEREZ, ERANDY POCT-GLUCOSE [id number] 18:49:00* Test Item Value Reference Range Comments POC-GLUCOSE METER (BEAKER) (test psjz=0176) 81 mg/dL 70-110 : TESTED AT [address], [address]: Child Welfare Caseworker/Manager Agricultural YN=[id number] for PEREZ, ERANDY POCT-GLUCOSE [id number] 18:43:00* Test Item Value Reference Range Comments POC-GLUCOSE METER (BEAKER) (test bbih=2557) 103 mg/dL 70-110 : TESTED AT [address], [address]: Child Welfare Caseworker/Manager Agricultural OR=[id number] for BOB MULLIGAN PLATELET AGGREGATION: FUNCTION [id number] 10:47:00* Test Item Value Reference Range Comments [id number] (BEAKER) (test ireq=7382) Tracy Padilla MD (electronic signature) PLATELET COUNT AGG (BEAKER) (test lhej=3513) 191 K/CU MM 150-450 PLATELET RICH PLASMA(BEAKER) (test ngif=7067) 210 k/cu mm 200-300 PLATELET FUNCTION SCREEN INTERPRETATION (BEAKER) (test bfkt=9933) Decreased aggregation with ADP which indicates platelet dysfunction that may be due to medication effect, uremia, or other platelet function disorders. Clinical correlation is required. Of note, comprehensive platelet aggregation performed 06/15 shows normal ADP resu lts with only aspirin effect (decreased aggregation with Arachidonic acid and ep inephrine). Results may be falsely decreased due to traumatic blood draws and no t truly installation service representative of platelet function.Platelet Function Screen results may be falsely low with platelet counts<75,000/cu mm.PLATELET AGGREGATION: EXTENDED [id number] 10:44:00* Test Item Value Reference Range Comments ARACHADONIC ACID RESULT(BEAKER) (test mukx=7334) 10 % 63-89 COLLAGEN RESULT(BEAKER) (test wlhb=6905) 71 % 65-89 EPINEPHRINE RESULT (BEAKER) (test nruz=2825) 28 % 48-88 PLATELET AGG COMP INTERPRETATION (BEAKER) (test ahlf=4932) Decreased response to arachidonic acid suggests aspirin-like effect. PLATELET AGG COMP INTERPRETATION (BEAKER) (test hggd=413471) Normal aggregation results with ADP. No evidence of platelet dysfunction or P2Y12 inhibitor effect. [id number] (BEAKER) (test wmkw=1914) Tracy Padilla MD (electronic signature) PLATELET COUNT AGG (BEAKER) (test oawq=3153) 220 K/CU MM 150-450 PLATELET RICH PLASMA(BEAKER) (test kmuy=1719) 278 k/cu mm 200-300 Platelet function studies by aggregation methodology on samples with platelet co unt <75,000/CU MM are unreliable; platelet function assessment should not be based on a single test.[id number] 07:43:00* Test Item Value Reference Range Comments MAGNESIUM (BEAKER) (test vjxq=695) 2.1 mg/dL 1.6-2.6 BASIC METABOLIC [id number] 07:43:00* Test Item Value Reference Range Comments SODIUM (BEAKER) (test jmyd=254) 138 meq/L 136-145 POTASSIUM (BEAKER) (test olhx=454) 4.2 meq/L 3.5-5.1 CHLORIDE (BEAKER) (test pvnc=634) 106 meq/L 98-107 CO2 (BEAKER) (test yaxt=286) 25 meq/L 22-29 BLOOD UREA NITROGEN (BEAKER) (test bzlg=129) 16 mg/dL 7-21 CREATININE (BEAKER) (test erzu=151) 0.78 mg/dL 0.57-1.25 GLUCOSE RANDOM (BEAKER) (test aocz=383) 89 mg/dL 70-105 CALCIUM (BEAKER) (test qlym=035) 9.5 mg/dL 8.4-10.2 EGFR (BEAKER) (test wuau=7944) 72 mL/min/1.73 sq m ESTIMATED GFR IS NOT ACCURATE CREATININE CLEARANCE IN PREDICTING GLOMERULAR FILTRATION RATE. ESTIMATED GFR IS NOT APPLICABLE FOR DIALYSIS PATIENTS. CBC W/PLT COUNT & AUTO [id number] 07:36:00* Test Item Value Reference Range Comments WHITE BLOOD CELL COUNT (BEAKER) (test labs=634) 4.4 K/ L 3.5-10.5 RED BLOOD CELL COUNT (BEAKER) (test xtlq=900) 4.09 M/ L 3.93-5.22 HEMOGLOBIN (BEAKER) (test mwni=811) 12.9 GM/DL 11.2-15.7 HEMATOCRIT (BEAKER) (test oysi=879) 39.9 % 34.1-44.9 MEAN CORPUSCULAR VOLUME (BEAKER) (test loyt=756) 97.6 fL 79.4-94.8 MEAN CORPUSCULAR HEMOGLOBIN (BEAKER) (test rurf=924) 31.5 pg 25.6-32.2 MEAN CORPUSCULAR HEMOGLOBIN CONC (BEAKER) (test fuvl=565) 32.3 GM/DL 32.2-35.5 RED CELL DISTRIBUTION WIDTH (BEAKER) (test vjex=676) 13.4 % 11.7-14.4 PLATELET COUNT (BEAKER) (test rkpj=270) 183 K/CU MM 150-450 MEAN PLATELET VOLUME (BEAKER) (test zhcd=875) 10.6 fL 9.4-12.3 NUCLEATED RED BLOOD CELLS (BEAKER) (test gejd=370) 0 /100 WBC 0-0 NEUTROPHILS RELATIVE PERCENT (BEAKER) (test sxkf=380) 57 % LYMPHOCYTES RELATIVE PERCENT (BEAKER) (test wmbb=996) 30 % MONOCYTES RELATIVE PERCENT (BEAKER) (test nshv=911) 8 % EOSINOPHILS RELATIVE PERCENT (BEAKER) (test mfkx=377) 4 % BASOPHILS RELATIVE PERCENT (BEAKER) (test gwee=783) 1 % NEUTROPHILS ABSOLUTE COUNT (BEAKER) (test miwz=716) 2.50 K/ L 1.56-6.13 LYMPHOCYTES ABSOLUTE COUNT (BEAKER) (test rxji=904) 1.32 K/ L 1.18-3.74 MONOCYTES ABSOLUTE COUNT (BEAKER) (test hsvw=937) 0.36 K/ L 0.24-0.36 EOSINOPHILS ABSOLUTE COUNT (BEAKER) (test nkzm=001) 0.18 K/ L 0.04-0.36 BASOPHILS ABSOLUTE COUNT (BEAKER) (test bexe=406) 0.04 K/ L 0.01-0.08 IMMATURE GRANULOCYTES-RELATIVE PERCENT (BEAKER) (test vjtr=8125) 0 % 0-1 POCT-GLUCOSE [id number] 21:18:00* Test Item Value Reference Range Comments POC-GLUCOSE METER (BEAKER) (test gpui=7291) 99 mg/dL 70-110 : TESTED AT [address], [id number]: Child Welfare Caseworker/Manager Agricultural GQ=[id number] for [facility] [employer] POCT-GLUCOSE [id number] 16:11:00* Test Item Value Reference Range Comments POC-GLUCOSE METER (BEAKER) (test ybev=6057) 83 mg/dL 70-110 : TESTED AT [address], [id number]: Child Welfare Caseworker/Manager Agricultural QS=[id number] for Leyla Corley POCT-GLUCOSE [id number] 09:52:00* Test Item Value Reference Range Comments POC-GLUCOSE METER (BEAKER) (test iqxj=2563) 111 mg/dL 70-110 : TESTED AT [address], [address]: Child Welfare Caseworker/Manager Agricultural LE=[id number] for Leyla Corley [id number] 04:58:00* Test Item Value Reference Range Comments MAGNESIUM (BEAKER) (test npiv=743) 1.9 mg/dL 1.6-2.6 BASIC METABOLIC [id number] 04:58:00* Test Item Value Reference Range Comments SODIUM (BEAKER) (test ubaj=469) 138 meq/L 136-145 POTASSIUM (BEAKER) (test kaoz=860) 3.9 meq/L 3.5-5.1 CHLORIDE (BEAKER) (test ziqe=802) 105 meq/L 98-107 CO2 (BEAKER) (test oibz=371) 27 meq/L 22-29 BLOOD UREA NITROGEN (BEAKER) (test jfbq=429) 22 mg/dL 7-21 CREATININE (BEAKER) (test jrbv=664) 0.76 mg/dL 0.57-1.25 GLUCOSE RANDOM (BEAKER) (test akls=180) 104 mg/dL 70-105 CALCIUM (BEAKER) (test vysr=891) 9.3 mg/dL 8.4-10.2 EGFR (BEAKER) (test udnl=7775) 74 mL/min/1.73 sq m ESTIMATED GFR IS NOT ACCURATE CREATININE CLEARANCE IN PREDICTING GLOMERULAR FILTRATION RATE. ESTIMATED GFR IS NOT APPLICABLE FOR DIALYSIS PATIENTS. CBC W/PLT COUNT & AUTO [id number] 04:35:00* Test Item Value Reference Range Comments WHITE BLOOD CELL COUNT (BEAKER) (test xbgk=866) 4.8 K/ L 3.5-10.5 RED BLOOD CELL COUNT (BEAKER) (test qeih=496) 3.92 M/ L 3.93-5.22 HEMOGLOBIN (BEAKER) (test klxs=678) 12.3 GM/DL 11.2-15.7 HEMATOCRIT (BEAKER) (test dypa=034) 38.0 % 34.1-44.9 MEAN CORPUSCULAR VOLUME (BEAKER) (test vsag=280) 96.9 fL 79.4-94.8 MEAN CORPUSCULAR HEMOGLOBIN (BEAKER) (test deus=984) 31.4 pg 25.6-32.2 MEAN CORPUSCULAR HEMOGLOBIN CONC (BEAKER) (test tjwt=712) 32.4 GM/DL 32.2-35.5 RED CELL DISTRIBUTION WIDTH (BEAKER) (test aftm=832) 13.3 % 11.7-14.4 PLATELET COUNT (BEAKER) (test jdnv=193) 179 K/CU MM 150-450 MEAN PLATELET VOLUME (BEAKER) (test uzrq=513) 10.2 fL 9.4-12.3 NUCLEATED RED BLOOD CELLS (BEAKER) (test luvp=808) 0 /100 WBC 0-0 NEUTROPHILS RELATIVE PERCENT (BEAKER) (test pyrb=644) 44 % LYMPHOCYTES RELATIVE PERCENT (BEAKER) (test nrkv=934) 41 % MONOCYTES RELATIVE PERCENT (BEAKER) (test pbao=686) 10 % EOSINOPHILS RELATIVE PERCENT (BEAKER) (test hxtg=238) 5 % BASOPHILS RELATIVE PERCENT (BEAKER) (test vkiu=013) 1 % NEUTROPHILS ABSOLUTE COUNT (BEAKER) (test vpel=555) 2.10 K/ L 1.56-6.13 LYMPHOCYTES ABSOLUTE COUNT (BEAKER) (test ffsr=097) 1.96 K/ L 1.18-3.74 MONOCYTES ABSOLUTE COUNT (BEAKER) (test wzyx=927) 0.50 K/ L 0.24-0.36 EOSINOPHILS ABSOLUTE COUNT (BEAKER) (test wrhz=053) 0.22 K/ L 0.04-0.36 BASOPHILS ABSOLUTE COUNT (BEAKER) (test mzck=703) 0.04 K/ L 0.01-0.08 IMMATURE GRANULOCYTES-RELATIVE PERCENT (BEAKER) (test yzqa=5541) 0 % 0-1 POCT-GLUCOSE [id number] 22:02:00* Test Item Value Reference Range Comments POC-GLUCOSE METER (BEAKER) (test qiau=6970) 102 mg/dL 70-110 : TESTED AT 81 [address], [address]: Child Welfare Caseworker/Manager Agricultural [id number] for Leyla Corley POCT-GLUCOSE [id number] 21:55:00* Test Item Value Reference Range Comments POC-GLUCOSE METER (BEAKER) (test ymwj=1369) 162 mg/dL 70-110 : TESTED AT [address], [address]: Child Welfare Caseworker/Manager Agricultural [id number] for BEN BELL PLATELET AGGREGATION: FUNCTION [id number] 15:26:00* Test Item Value Reference Range Comments [id number] (BEAKER) (test jzgj=0551) Yuniel Torrez M.D. (electonic signature) PLATELET COUNT AGG (BEAKER) (test dscy=2137) 242 K/CU MM 150-450 PLATELET RICH PLASMA(BEAKER) (test ookc=5895) 259 k/cu mm 200-300 PLATELET FUNCTION SCREEN INTERPRETATION (BEAKER) (test pxhy=9166) Decreased aggregation with ADP which indicates platelet dysfunction that may be due to medication effect, uremia, or other platelet function disorders. Clinical correlation is required. Platelet Function Screen results may be falsely low with platelet counts< 75,000/cu mm.POCT-GLUCOSE [id number] 13:32:00* Test Item Value Reference Range Comments POC-GLUCOSE METER (BEAKER) (test wken=8563) 98 mg/dL 70-110 : TESTED AT [facility] [address] [facility], [address]: Child Welfare Caseworker/Manager Agricultural [id number] for MATTHEW RUTHERFORD POCT-GLUCOSE [id number] 07:01:00* Test Item Value Reference Range Comments POC-GLUCOSE METER (BEAKER) (test yfwg=8880) 102 mg/dL 70-110 : TESTED AT [facility] [address] [facility], [address]: Child Welfare Caseworker/Manager Agricultural [id number] for Michael Allen [id number] 05:55:00* Test Item Value Reference Range Comments MAGNESIUM (BEAKER) (test mimd=883) 2.1 mg/dL 1.6-2.6 BASIC METABOLIC [id number] 05:55:00* Test Item Value Reference Range Comments SODIUM (BEAKER) (test nccr=002) 136 meq/L 136-145 POTASSIUM (BEAKER) (test ezov=349) 4.1 meq/L 3.5-5.1 CHLORIDE (BEAKER) (test uhpx=143) 102 meq/L 98-107 CO2 (BEAKER) (test fnhb=014) 28 meq/L 22-29 BLOOD UREA NITROGEN (BEAKER) (test mgnu=927) 21 mg/dL 7-21 CREATININE (BEAKER) (test cxcv=911) 0.85 mg/dL 0.57-1.25 GLUCOSE RANDOM (BEAKER) (test luox=576) 103 mg/dL 70-105 CALCIUM (BEAKER) (test lyfz=416) 9.9 mg/dL 8.4-10.2 EGFR (BEAKER) (test ouml=4896) 65 mL/min/1.73 sq m ESTIMATED GFR IS NOT ACCURATE CREATININE CLEARANCE IN PREDICTING GLOMERULAR FILTRATION RATE. ESTIMATED GFR IS NOT APPLICABLE FOR DIALYSIS PATIENTS. CBC W/PLT COUNT & AUTO [id number] 05:04:00* Test Item Value Reference Range Comments WHITE BLOOD CELL COUNT (BEAKER) (test hxxy=294) 5.3 K/ L 3.5-10.5 RED BLOOD CELL COUNT (BEAKER) (test msdy=184) 4.25 M/ L 3.93-5.22 HEMOGLOBIN (BEAKER) (test lqhm=554) 13.2 GM/DL 11.2-15.7 HEMATOCRIT (BEAKER) (test xsst=117) 41.0 % 34.1-44.9 MEAN CORPUSCULAR VOLUME (BEAKER) (test cfuc=040) 96.5 fL 79.4-94.8 MEAN CORPUSCULAR HEMOGLOBIN (BEAKER) (test hdkc=509) 31.1 pg 25.6-32.2 MEAN CORPUSCULAR HEMOGLOBIN CONC (BEAKER) (test qcar=644) 32.2 GM/DL 32.2-35.5 RED CELL DISTRIBUTION WIDTH (BEAKER) (test xdti=828) 13.6 % 11.7-14.4 PLATELET COUNT (BEAKER) (test mplp=295) 205 K/CU MM 150-450 MEAN PLATELET VOLUME (BEAKER) (test vzyj=613) 10.2 fL 9.4-12.3 NUCLEATED RED BLOOD CELLS (BEAKER) (test vmqy=712) 0 /100 WBC 0-0 NEUTROPHILS RELATIVE PERCENT (BEAKER) (test jlqo=632) 47 % LYMPHOCYTES RELATIVE PERCENT (BEAKER) (test bkpc=035) 37 % MONOCYTES RELATIVE PERCENT (BEAKER) (test hzth=970) 10 % EOSINOPHILS RELATIVE PERCENT (BEAKER) (test tpyo=851) 5 % BASOPHILS RELATIVE PERCENT (BEAKER) (test hark=242) 1 % NEUTROPHILS ABSOLUTE COUNT (BEAKER) (test gisg=938) 2.48 K/ L 1.56-6.13 LYMPHOCYTES ABSOLUTE COUNT (BEAKER) (test ohqz=503) 1.94 K/ L 1.18-3.74 MONOCYTES ABSOLUTE COUNT (BEAKER) (test tguh=110) 0.55 K/ L 0.24-0.36 EOSINOPHILS ABSOLUTE COUNT (BEAKER) (test bmvd=911) 0.26 K/ L 0.04-0.36 BASOPHILS ABSOLUTE COUNT (BEAKER) (test lzjd=781) 0.05 K/ L 0.01-0.08 IMMATURE GRANULOCYTES-RELATIVE PERCENT (BEAKER) (test aksa=8022) 0 % 0-1 POCT-GLUCOSE [id number] 23:24:00* Test Item Value Reference Range Comments POC-GLUCOSE METER (BEAKER) (test lbec=0809) 186 mg/dL 70-110 : TESTED AT [facility] [address] [facility], [address]: Child Welfare Caseworker/Manager Agricultural [id number] for Michael Allen POCT-GLUCOSE [id number] 18:22:00* Test Item Value Reference Range Comments POC-GLUCOSE METER (BEAKER) (test lavb=2723) 108 mg/dL 70-110 : TESTED AT [facility] [address] [facility], [address]: Child Welfare Caseworker/Manager Agricultural [id number] for SERGE BERNSTEIN PLATELET AGGREGATION: FUNCTION [id number] 17:01:00* Test Item Value Reference Range Comments [id number] (BEAKER) (test vbtr=2024) Yuniel Torrez M.D. (electonic signature) PLATELET COUNT AGG (BEAKER) (test jrgr=1584) 197 K/CU MM 150-450 PLATELET RICH PLASMA(BEAKER) (test skiq=2332) 234 k/cu mm 200-300 PLATELET FUNCTION SCREEN INTERPRETATION (BEAKER) (test lscw=0088) Pattern of disaggregation present with ADP which may be characteristic of P2Y12 inhibitor effect. Correlation with medication history is required. Platelet Function Screen results may be falsely low with platelet counts< 75,000/cu mm.POCT-GLUCOSE [id number] 08:14:00* Test Item Value Reference Range Comments POC-GLUCOSE METER (BEAKER) (test nfty=0753) 122 mg/dL 70-110 : TESTED AT [place] [id number] [facility], [address]: Child Welfare Caseworker/Manager Agricultural [id number] for Leyla Corley BASIC METABOLIC [id number] 06:19:00* Test Item Value Reference Range Comments SODIUM (BEAKER) (test nkpp=794) 140 meq/L 136-145 POTASSIUM (BEAKER) (test fvsd=839) 4.0 meq/L 3.5-5.1 CHLORIDE (BEAKER) (test wedm=526) 106 meq/L 98-107 CO2 (BEAKER) (test nxxl=144) 30 meq/L 22-29 BLOOD UREA NITROGEN (BEAKER) (test yssm=717) 18 mg/dL 7-21 CREATININE (BEAKER) (test jznl=263) 0.83 mg/dL 0.57-1.25 GLUCOSE RANDOM (BEAKER) (test tuhe=062) 113 mg/dL 70-105 CALCIUM (BEAKER) (test crxx=693) 9.4 mg/dL 8.4-10.2 EGFR (BEAKER) (test oenc=1688) 67 mL/min/1.73 sq m ESTIMATED GFR IS NOT ACCURATE CREATININE CLEARANCE IN PREDICTING GLOMERULAR FILTRATION RATE. ESTIMATED GFR IS NOT APPLICABLE FOR DIALYSIS PATIENTS. [id number] 06:18:00* Test Item Value Reference Range Comments MAGNESIUM (BEAKER) (test wrvc=191) 2.0 mg/dL 1.6-2.6 CBC W/PLT COUNT & AUTO [id number] 05:32:00* Test Item Value Reference Range Comments WHITE BLOOD CELL COUNT (BEAKER) (test fzbe=526) 4.2 K/ L 3.5-10.5 RED BLOOD CELL COUNT (BEAKER) (test vorj=243) 4.24 M/ L 3.93-5.22 HEMOGLOBIN (BEAKER) (test bzch=635) 13.1 GM/DL 11.2-15.7 HEMATOCRIT (BEAKER) (test hfrk=866) 41.0 % 34.1-44.9 MEAN CORPUSCULAR VOLUME (BEAKER) (test rsqr=368) 96.7 fL 79.4-94.8 MEAN CORPUSCULAR HEMOGLOBIN (BEAKER) (test awzh=873) 30.9 pg 25.6-32.2 MEAN CORPUSCULAR HEMOGLOBIN CONC (BEAKER) (test cqxx=878) 32.0 GM/DL 32.2-35.5 RED CELL DISTRIBUTION WIDTH (BEAKER) (test zhto=869) 13.4 % 11.7-14.4 PLATELET COUNT (BEAKER) (test gyof=412) 197 K/CU MM 150-450 MEAN PLATELET VOLUME (BEAKER) (test fijn=700) 10.3 fL 9.4-12.3 NUCLEATED RED BLOOD CELLS (BEAKER) (test npgy=990) 0 /100 WBC 0-0 NEUTROPHILS RELATIVE PERCENT (BEAKER) (test kmzg=729) 46 % LYMPHOCYTES RELATIVE PERCENT (BEAKER) (test diiz=062) 39 % MONOCYTES RELATIVE PERCENT (BEAKER) (test sbhs=558) 10 % EOSINOPHILS RELATIVE PERCENT (BEAKER) (test xqly=979) 5 % BASOPHILS RELATIVE PERCENT (BEAKER) (test mnlk=421) 1 % NEUTROPHILS ABSOLUTE COUNT (BEAKER) (test zoiy=654) 1.89 K/ L 1.56-6.13 LYMPHOCYTES ABSOLUTE COUNT (BEAKER) (test llvz=376) 1.63 K/ L 1.18-3.74 MONOCYTES ABSOLUTE COUNT (BEAKER) (test dmxr=800) 0.40 K/ L 0.24-0.36 EOSINOPHILS ABSOLUTE COUNT (BEAKER) (test npux=420) 0.20 K/ L 0.04-0.36 BASOPHILS ABSOLUTE COUNT (BEAKER) (test vlvw=734) 0.03 K/ L 0.01-0.08 IMMATURE GRANULOCYTES-RELATIVE PERCENT (BEAKER) (test txha=3516) 0 % 0-1 POCT-GLUCOSE [id number] 21:40:00* Test Item Value Reference Range Comments POC-GLUCOSE METER (BEAKER) (test saek=5735) 135 mg/dL 70-110 : TESTED AT [facility] [address] [facility], [address]: Child Welfare Caseworker/Manager Agricultural [id number] for Michael Allen POCT-GLUCOSE [id number] 18:07:00* Test Item Value Reference Range Comments POC-GLUCOSE METER (BEAKER) (test apeo=1702) 125 mg/dL 70-110 : TESTED AT [place] [address] [facility], [address]: Child Welfare Caseworker/Manager Agricultural [id number] for Nani Cardoza PLATELET AGGREGATION: FUNCTION [id number] 17:10:00* Test Item Value Reference Range Comments [id number] (BEAKER) (test cedj=9898) Nicola Oconnell MD (electronic signature) PLATELET COUNT AGG (BEAKER) (test lfhs=8799) 183 K/CU MM 150-450 PLATELET RICH PLASMA(BEAKER) (test yaut=3088) 284 k/cu mm 200-300 PLATELET FUNCTION SCREEN INTERPRETATION (BEAKER) (test gpkv=7682) Decreased aggregation with ADP which indicates platelet dysfunction that may be due to medication effect, uremia, or other platelet function disorders. Clinical correlation is required. Platelet Function Screen results may be falsely low with platelet counts< 75,000/cu mm.PLATELET AGGREGATION: FUNCTION [id number] 17:09:00* Test Item Value Reference Range Comments [id number] (BEAKER) (test psgn=4039) Nicola Oconnell MD (electronic signature) PLATELET COUNT AGG (BEAKER) (test xjwa=3995) 196 K/CU MM 150-450 PLATELET RICH PLASMA(BEAKER) (test nehb=8100) 212 k/cu mm 200-300 PLATELET FUNCTION SCREEN INTERPRETATION (BEAKER) (test mtdp=1978) Decreased aggregation with ADP which indicates platelet dysfunction that may be due to medication effect, uremia, or other platelet function disorders. Clinical correlation is required. Platelet Function Screen results may be falsely low with platelet counts< 75,000/cu mm.POCT-GLUCOSE [id number] 09:35:00* Test Item Value Reference Range Comments POC-GLUCOSE METER (BEAKER) (test bpyl=6732) 110 mg/dL 70-110 : TESTED AT [facility] [address] [facility], [address]: Child Welfare Caseworker/Manager Agricultural [id number] for Nani Cardoza [id number] 05:49:00* Test Item Value Reference Range Comments MAGNESIUM (BEAKER) (test mpag=429) 2.0 mg/dL 1.6-2.6 BASIC METABOLIC [id number] 05:49:00* Test Item Value Reference Range Comments SODIUM (BEAKER) (test ooml=077) 138 meq/L 136-145 POTASSIUM (BEAKER) (test fxki=822) 3.8 meq/L 3.5-5.1 CHLORIDE (BEAKER) (test utol=446) 106 meq/L 98-107 CO2 (BEAKER) (test ouga=790) 26 meq/L 22-29 BLOOD UREA NITROGEN (BEAKER) (test mlix=908) 21 mg/dL 7-21 CREATININE (BEAKER) (test cmih=410) 0.80 mg/dL 0.57-1.25 GLUCOSE RANDOM (BEAKER) (test itwg=367) 124 mg/dL 70-105 CALCIUM (BEAKER) (test gxsx=273) 9.6 mg/dL 8.4-10.2 EGFR (BEAKER) (test lqzy=3591) 70 mL/min/1.73 sq m ESTIMATED GFR IS NOT ACCURATE CREATININE CLEARANCE IN PREDICTING GLOMERULAR FILTRATION RATE. ESTIMATED GFR IS NOT APPLICABLE FOR DIALYSIS PATIENTS. CBC W/PLT COUNT & AUTO [id number] 05:18:00* Test Item Value Reference Range Comments WHITE BLOOD CELL COUNT (BEAKER) (test mxdf=844) 4.7 K/ L 3.5-10.5 RED BLOOD CELL COUNT (BEAKER) (test omhu=239) 4.16 M/ L 3.93-5.22 HEMOGLOBIN (BEAKER) (test qjyd=674) 13.1 GM/DL 11.2-15.7 HEMATOCRIT (BEAKER) (test tzox=191) 41.1 % 34.1-44.9 MEAN CORPUSCULAR VOLUME (BEAKER) (test zqvj=743) 98.8 fL 79.4-94.8 MEAN CORPUSCULAR HEMOGLOBIN (BEAKER) (test ddln=496) 31.5 pg 25.6-32.2 MEAN CORPUSCULAR HEMOGLOBIN CONC (BEAKER) (test tkpt=500) 31.9 GM/DL 32.2-35.5 RED CELL DISTRIBUTION WIDTH (BEAKER) (test ayfi=087) 13.7 % 11.7-14.4 PLATELET COUNT (BEAKER) (test kann=494) 184 K/CU MM 150-450 MEAN PLATELET VOLUME (BEAKER) (test wrwi=663) 10.4 fL 9.4-12.3 NUCLEATED RED BLOOD CELLS (BEAKER) (test ddfw=878) 0 /100 WBC 0-0 NEUTROPHILS RELATIVE PERCENT (BEAKER) (test ivrt=295) 47 % LYMPHOCYTES RELATIVE PERCENT (BEAKER) (test ohyf=848) 35 % MONOCYTES RELATIVE PERCENT (BEAKER) (test xwyw=574) 12 % EOSINOPHILS RELATIVE PERCENT (BEAKER) (test gcdz=167) 5 % BASOPHILS RELATIVE PERCENT (BEAKER) (test bevb=049) 1 % NEUTROPHILS ABSOLUTE COUNT (BEAKER) (test wggr=174) 2.22 K/ L 1.56-6.13 LYMPHOCYTES ABSOLUTE COUNT (BEAKER) (test xqxn=339) 1.66 K/ L 1.18-3.74 MONOCYTES ABSOLUTE COUNT (BEAKER) (test ajgs=224) 0.56 K/ L 0.24-0.36 EOSINOPHILS ABSOLUTE COUNT (BEAKER) (test lmck=693) 0.24 K/ L 0.04-0.36 BASOPHILS ABSOLUTE COUNT (BEAKER) (test dtsk=238) 0.04 K/ L 0.01-0.08 IMMATURE GRANULOCYTES-RELATIVE PERCENT (BEAKER) (test knkc=7261) 0 % 0-1 POCT-GLUCOSE [id number] 21:47:00* Test Item Value Reference Range Comments POC-GLUCOSE METER (BEAKER) (test jpxv=9921) 130 mg/dL 70-110 : TESTED AT [facility] [address] [facility], [address]: Child Welfare Caseworker/Manager Agricultural [id number] for ANGELINA ALVARADO POCT-GLUCOSE [id number] 17:54:00* Test Item Value Reference Range Comments POC-GLUCOSE METER (BEAKER) (test uaks=1877) 107 mg/dL 70-110 : TESTED AT [facility] [address] [facility], [address]: Child Welfare Caseworker/Manager Agricultural [phone]=[id number] for Leyla Corley CT, CHEST, WITHOUT [id number] 17:19:00FINAL REPORT TECHNIQUE: CT scan of the chest WITHOUT intravenous contrast. Dose modulation, iterative reconstruction, and/or weight-based adjustment of the mA/kV was utilized to reduce the radiation dose to as low as reasonably achievable. INDICATION: preop. COMPARISON: None. FINDINGS: ABSENCE OF INTRAVENOUS CONTRAST DECREASES SENSITIVITY FOR DETECTION OF FOCAL LESIONS AND VASCULAR PATHOLOGY. LINES/TUBES: None. LUNGS AND AIRWAYS: Mild subpleural retic ular opacities of the right anterior lung. PLEURA: The pleural spaces are clear. HEART AND MEDIASTINUM: Right thyroid nodule measures 0.8 cm and is likely clini frannie insignificant. No further imaging is recommended. No significant mediastin al, hilar, or axillary lymphadenopathy. The right ventricle is immediately deep to the sternum (approximately 1 mm), and the right ventricular outflow tract is 0.9 cm deep to the sternum. Marked coronary arterial calcifications. Moderate ao rtic annular calcifications. No only minimal calcification of the rest of the as cending thoracic aorta. Moderate calcification of the aortic arch, arch branch v essels, and descending thoracic aorta. SOFT TISSUES AND BONES: The right breast skin thickening may be due to prior treatment. UPPER ABDOMEN: There is likely re tained contrast within the right renal collecting system, possibly from the rece nt prior MR. IMPRESSION: 1.The right ventricle is immediately deep to the akhtar um. 2.There is marked coronary arterial calcification with calcification of the aortic annulus. There is only minimal calcification of the rest of the ascending thoracic aorta. 3.The right breast skin thickening and mild interstitial fibros is of the right anterior lung are likely due to prior radiation treatment. Luisa d: Jamil Neal MDReport Verified Date/Time: 06/11/2019 17:19:22 Reading Location : [facility] B1 C013Y CT Body Reading Room -GLUCOSE [id number] 11:42:00* Test Item Value Reference Range Comments POC-GLUCOSE METER (BEAKER) (test geko=5768) 123 mg/dL 70-110 : TESTED AT [facility] [address] [facility], [address]: Child Welfare Caseworker/Manager Agricultural [id number]=[id number] for Leyla Corley, CARDIAC, [id number] 10:11:00FINAL REPORT Cardiac MRI dated 11 June 2019 INDICATION: This is a 73 year-old female with congestive cardiac failure presents for assessment. This study is performed in order to quantitate left ventricular function, and to determine myocardial viability and damage. TECHNIQUE: Jeffry ACHIEVA MRI scanner. Morphologic and dynamic cine imaging were performed in multiple projections before and after contrast administration. Thereafter, gadolinium was administered, which was followed by viability/scar imaging. Finally, flow quantification sequences were performed to determine the degree of valvular dysfunction. Please refer to the contrast sheet scanned in the EPIC system for the amount and route of contrast given. Scanning blood pressure was 112/58. Patient weighs 132 pounds, with height of 65 inches. Body surface area is approximately 1.66 sq m. FINDINGS: The chest wall and mediastinum appears unremarkable. Small pericardial effusion is identified, considered physiologic in nature. The central pulmonary artery is normal in calibre. Limited imaging through the lungs reveals no gross abnormalities; MR is not optimised in the assessment of pulmonary parenchymal lung disease. The cardiac chambers demonstrate normal atrioventricular and ventriculoarterial concordance, and systemic and pulmonary venous return. The thoracic aorta is normal in course, calibre, and contour. No ectasia or aneur ysmal dilation is appreciated. There is no evidence of acute aortic pathology, s uch as dissection, intramural hematoma, or contained rupture. Left ventricle is enlarged, with severe global systolic dysfunction. In the cine imaging, there is paradoxical septal motion of the interventricular septum. No imaging evidence to suggest hypertrophic cardiomyopathy or left ventricular noncompaction. Quant itative values are as follows: XQF=648 cc; ROS=372 cc; stroke volume=47 cc; and ejection fraction=19%. Calculated absolute cardiac output=3.6 liters/min. Abso lute left ventricular yvfy=145 grams. Indexed NGXQV=563 cc/sq m. On the other pritchard nd, the right ventricle is normal in size and function. Quantitative values are as follows: EDV=73 cc; ESV=25 cc; stroke volume=47 cc; and ejection fraction=65% . Cine imaging and flow quantification reveals normal mitral, aortic and tricus pid valve function. Aortic valve area is 1.6 sq cm, likely reflecting underlyin g systolic dysfunction. No aortic regurgitation is identified. Viability/scar im aging reveals majority of the left ventricle has uniformly "nulled" myocardium, except in a tiny segment of the mid inferior wall, transmural hyperenhancement i s identified, of uncertain significance as remainder of the mid inferior wall is fully viable. In [place]oksack T1 mapping, there is mild increase in septal myocardial T1 measurement, suggesting diffuse fibrosis, reflecting underlying pathophysiol ogy, despite unremarkable viability/scar imaging. Ventricular thrombus is not pr esent. Mild left atrial prominence is noted in the four-chamber orientation. CON CLUSIONS: 1. The left ventricle is enlarged, with paradoxical septal motion of the interventricular septum, with global severe systolic dysfunction. Ejection f raction is quantified to be 19%. Quantitative left ventricular functional value s are as described above. There is no imaging findings to suggest hypertrophic c ardiomyopathy or left ventricular noncompaction. Viability/scar imaging reveals majority of the left ventricle has uniformly "nulled" myocardium, except in a ti ny segment of the mid inferior wall, transmural hyperenhancement is identified, of uncertain significance as remainder of the mid inferior wall is fully viable. There is no imaging findings of infiltrative cardiomyopathy such as amyloidosis. There is likely the presence of mild diffuse fibrosis per T1 mapping, reflecting underlying cardiomyopathy despite unremarkable viability/scar imaging. 2. The right ventricle is normal in size and function. Quantitative right ventricular functional values as described above. No abnormal enhancement of the right vent ricular myocardium is present after contrast administration. 3. Other findings as described above. Signed: Severo Monreal [facility] Verified Date/Time: 06/11 10:11:13 -GLUCOSE [id number] 08:15:00* Test Item Value Reference Range Comments POC-GLUCOSE METER (BEAKER) (test jsnp=5351) 122 mg/dL 70-110 : TESTED AT [facility] [address] [facility], [address]: Child Welfare Caseworker/Manager Agricultural [id number] for Leyla Corley [id number] 07:23:00* Test Item Value Reference Range Comments MAGNESIUM (BEAKER) (test itoh=430) 2.0 mg/dL 1.6-2.6 BASIC METABOLIC [id number] 07:23:00* Test Item Value Reference Range Comments SODIUM (BEAKER) (test wenz=814) 139 meq/L 136-145 POTASSIUM (BEAKER) (test bxym=384) 3.8 meq/L 3.5-5.1 CHLORIDE (BEAKER) (test mtin=241) 106 meq/L 98-107 CO2 (BEAKER) (test leqa=217) 27 meq/L 22-29 BLOOD UREA NITROGEN (BEAKER) (test cdpu=068) 21 mg/dL 7-21 CREATININE (BEAKER) (test mmee=748) 0.76 mg/dL 0.57-1.25 GLUCOSE RANDOM (BEAKER) (test kvzc=463) 103 mg/dL 70-105 CALCIUM (BEAKER) (test babi=103) 9.1 mg/dL 8.4-10.2 EGFR (BEAKER) (test dxyg=4017) 74 mL/min/1.73 sq m ESTIMATED GFR IS NOT ACCURATE CREATININE CLEARANCE IN PREDICTING GLOMERULAR FILTRATION RATE. ESTIMATED GFR IS NOT APPLICABLE FOR DIALYSIS PATIENTS. CBC W/PLT COUNT & AUTO [id number] 06:07:00* Test Item Value Reference Range Comments WHITE BLOOD CELL COUNT (BEAKER) (test mewz=048) 4.7 K/ L 3.5-10.5 RED BLOOD CELL COUNT (BEAKER) (test txah=693) 4.16 M/ L 3.93-5.22 HEMOGLOBIN (BEAKER) (test xhyz=057) 13.0 GM/DL 11.2-15.7 HEMATOCRIT (BEAKER) (test jhbq=476) 40.6 % 34.1-44.9 MEAN CORPUSCULAR VOLUME (BEAKER) (test pcpx=422) 97.6 fL 79.4-94.8 MEAN CORPUSCULAR HEMOGLOBIN (BEAKER) (test wucl=579) 31.3 pg 25.6-32.2 MEAN CORPUSCULAR HEMOGLOBIN CONC (BEAKER) (test rfew=286) 32.0 GM/DL 32.2-35.5 RED CELL DISTRIBUTION WIDTH (BEAKER) (test kfzy=248) 13.6 % 11.7-14.4 PLATELET COUNT (BEAKER) (test qzet=913) 176 K/CU MM 150-450 MEAN PLATELET VOLUME (BEAKER) (test ulqf=583) 10.5 fL 9.4-12.3 NUCLEATED RED BLOOD CELLS (BEAKER) (test tmmv=010) 0 /100 WBC 0-0 NEUTROPHILS RELATIVE PERCENT (BEAKER) (test tmxi=310) 53 % LYMPHOCYTES RELATIVE PERCENT (BEAKER) (test myss=555) 29 % MONOCYTES RELATIVE PERCENT (BEAKER) (test jlty=436) 13 % EOSINOPHILS RELATIVE PERCENT (BEAKER) (test outp=861) 4 % BASOPHILS RELATIVE PERCENT (BEAKER) (test zqpe=643) 1 % NEUTROPHILS ABSOLUTE COUNT (BEAKER) (test pzeu=465) 2.45 K/ L 1.56-6.13 LYMPHOCYTES ABSOLUTE COUNT (BEAKER) (test swra=174) 1.37 K/ L 1.18-3.74 MONOCYTES ABSOLUTE COUNT (BEAKER) (test siof=301) 0.62 K/ L 0.24-0.36 EOSINOPHILS ABSOLUTE COUNT (BEAKER) (test fkgy=239) 0.19 K/ L 0.04-0.36 BASOPHILS ABSOLUTE COUNT (BEAKER) (test rezp=117) 0.03 K/ L 0.01-0.08 IMMATURE GRANULOCYTES-RELATIVE PERCENT (BEAKER) (test eiqs=6670) 0 % 0-1 POCT-GLUCOSE [id number] 21:35:00* Test Item Value Reference Range Comments POC-GLUCOSE METER (BEAKER) (test oinn=2354) 163 mg/dL 70-110 : TESTED AT [facility] [address] [facility], [id number]: Child Welfare Caseworker/Manager Agricultural HL=[id number] for ANGELINA ALVARADO POCT-GLUCOSE [id number] 18:15:00* Test Item Value Reference Range Comments POC-GLUCOSE METER (BEAKER) (test ekfv=9391) 132 mg/dL 70-110 : TESTED AT [facility] [address] [facility], [id number]: Child Welfare Caseworker/Manager Agricultural DR=[id number] for Sylvia Hager POCT-GLUCOSE [id number] 12:42:00* Test Item Value Reference Range Comments POC-GLUCOSE METER (BEAKER) (test jljr=1343) 144 mg/dL 70-110 : TESTED AT [place] [id number] [facility], [id number]: Child Welfare Caseworker/Manager Agricultural HQ=[id number] for MARY POOLE PLATELET AGGREGATION: FUNCTION [id number] 10:35:00* Test Item Value Reference Range Comments [id number] (BEAKER) (test wpiv=2648) Nicola Oconnell MD (electronic signature) PLATELET COUNT AGG (BEAKER) (test xrfu=7766) 198 K/CU MM 150-450 PLATELET RICH PLASMA(BEAKER) (test hvbu=7301) 255 k/cu mm 200-300 PLATELET FUNCTION SCREEN INTERPRETATION (BEAKER) (test skdw=4476) Decreased aggregation with ADP which indicates platelet dysfunction that may be due to medication effect, uremia, or other platelet function disorders. Clinical correlation is required. Platelet Function Screen results may be falsely low with platelet counts< 75,000/cu mm.POCT-GLUCOSE [id number] 07:49:00* Test Item Value Reference Range Comments POC-GLUCOSE METER (BEAKER) (test jfsw=0409) 100 mg/dL 70-110 : TESTED AT [place] [id number] [facility] [place], [id number]: Child Welfare Caseworker/Manager Agricultural NC=[id number] for MARY POOLE [id number] 06:18:00* Test Item Value Reference Range Comments MAGNESIUM (BEAKER) (test lbus=876) 2.0 mg/dL 1.6-2.6 Specimen slightly hemolyzed BASIC METABOLIC [id number] 06:18:00* Test Item Value Reference Range Comments SODIUM (BEAKER) (test chob=255) 140 meq/L 136-145 POTASSIUM (BEAKER) (test hdin=906) 4.2 meq/L 3.5-5.1 Specimen slightly hemolyzed CHLORIDE (BEAKER) (test ycve=172) 106 meq/L 98-107 CO2 (BEAKER) (test gmmr=964) 26 meq/L 22-29 BLOOD UREA NITROGEN (BEAKER) (test qnkn=687) 19 mg/dL 7-21 CREATININE (BEAKER) (test wmnk=004) 0.78 mg/dL 0.57-1.25 Specimen slightly hemolyzed GLUCOSE RANDOM (BEAKER) (test lxag=513) 101 mg/dL 70-105 CALCIUM (BEAKER) (test roig=269) 9.6 mg/dL 8.4-10.2 EGFR (BEAKER) (test xyro=3616) 72 mL/min/1.73 sq m ESTIMATED GFR IS NOT ACCURATE CREATININE CLEARANCE IN PREDICTING GLOMERULAR FILTRATION RATE. ESTIMATED GFR IS NOT APPLICABLE FOR DIALYSIS PATIENTS. POCT-GLUCOSE [id number] 21:26:00* Test Item Value Reference Range Comments POC-GLUCOSE METER (BEAKER) (test fnth=5226) 172 mg/dL 70-110 : TESTED AT [address], [address]: Child Welfare Caseworker/Manager Agricultural CT=[id number] for ELIU RODARTE POCT-GLUCOSE [id number] 17:29:00* Test Item Value Reference Range Comments POC-GLUCOSE METER (BEAKER) (test lxog=2540) 127 mg/dL 70-110 : TESTED AT [address], [address]: Child Welfare Caseworker/Manager Agricultural [id number] for LEATHA BARONE POCT-GLUCOSE [id number] 12:15:00* Test Item Value Reference Range Comments POC-GLUCOSE METER (BEAKER) (test elvl=9192) 144 mg/dL 70-110 : TESTED AT [address], [address]: Child Welfare Caseworker/Manager Agricultural VV=[id number] for Sancho Alonsoip POCT-GLUCOSE [id number] 07:50:00* Test Item Value Reference Range Comments POC-GLUCOSE METER (BEAKER) (test tqxc=5461) 93 mg/dL 70-110 : TESTED AT [address], [address]: Child Welfare Caseworker/Manager Agricultural SQ=[id number] for Sancho Alnosoip HEMOGLOBIN [id number] 07:47:00* Test Item Value Reference Range Comments HEMOGLOBIN A1C (BEAKER) (test nnis=502) 6.2 % 4.3-6.1 [id number] 07:41:00* Test Item Value Reference Range Comments MAGNESIUM (BEAKER) (test vuec=477) 1.9 mg/dL 1.6-2.6 Specimen slightly hemolyzed BASIC METABOLIC [id number] 07:41:00* Test Item Value Reference Range Comments SODIUM (BEAKER) (test brve=004) 137 meq/L 136-145 POTASSIUM (BEAKER) (test cdni=856) 4.5 meq/L 3.5-5.1 Specimen slightly hemolyzed CHLORIDE (BEAKER) (test yysy=613) 104 meq/L 98-107 CO2 (BEAKER) (test ikcn=508) 24 meq/L 22-29 BLOOD UREA NITROGEN (BEAKER) (test szjg=548) 14 mg/dL 7-21 CREATININE (BEAKER) (test qonj=326) 0.75 mg/dL 0.57-1.25 Specimen slightly hemolyzed GLUCOSE RANDOM (BEAKER) (test xqzi=668) 88 mg/dL 70-105 CALCIUM (BEAKER) (test kqbr=850) 9.2 mg/dL 8.4-10.2 EGFR (BEAKER) (test vbzf=5601) 75 mL/min/1.73 sq m ESTIMATED GFR IS NOT ACCURATE CREATININE CLEARANCE IN PREDICTING GLOMERULAR FILTRATION RATE. ESTIMATED GFR IS NOT APPLICABLE FOR DIALYSIS PATIENTS. TSH/FREE T4 IF [id number] 07:37:00* Test Item Value Reference Range Comments THYROID STIMULATING HORMONE (BEAKER) (test nzsb=569) 0.75 uIU/mL 0.35-4.94 TROPONIN [id number] 07:24:00* Test Item Value Reference Range Comments TROPONIN I (BEAKER) (test jhwe=735) 0.05 ng/mL 0.00-0.03 Troponin I (TnI) levels must be interpreted in the context of the presenting sym ptoms and the clinical findings. Elevated TnI levels indicate myocardial damage, but are not specific for ischemic heart disease. Elevated TnI levels are seen in patients with other cardiac conditions (including myocarditis and congestive h eart failure), and slight TnI elevations occur in patients with other conditions , including sepsis, renal failure, acidosis, acute neurological disease, and per sistent tachyarrhythmia.TROPONIN [id number] 01:21:00* Test Item Value Reference Range Comments TROPONIN I (BEAKER) (test wayp=886) 0.06 ng/mL 0.00-0.03 Troponin I (TnI) levels must be interpreted in the context of the presenting sym ptoms and the clinical findings. Elevated TnI levels indicate myocardial damage, but are not specific for ischemic heart disease. Elevated TnI levels are seen in patients with other cardiac conditions (including myocarditis and congestive h eart failure), and slight TnI elevations occur in patients with other conditions , including sepsis, renal failure, acidosis, acute neurological disease, and per sistent tachyarrhythmia.Check Serum Potassium level 2 hours after oral potassium replacement completed or 30 min after intravenous potassium replacement. [id number] 01:14:00* Test Item Value Reference Range Comments POTASSIUM (BEAKER) (test evju=484) 3.5 meq/L 3.5-5.1 Check Serum Potassium level 2 hours after oral potassium replacement completed o r 30 min after intravenous potassium replacement.[id number] 01:14:00* Test Item Value Reference Range Comments MAGNESIUM (BEAKER) (test yvuj=046) 2.0 mg/dL 1.6-2.6 Check Serum Potassium level 2 hours after oral potassium replacement completed o r 30 min after intravenous potassium replacement.TROPONIN [id number] 08:03:00* Test Item Value Reference Range Comments TROPONIN I (BEAKER) (test mpop=410) 0.09 ng/mL 0.00-0.03 Troponin I (TnI) levels must be interpreted in the context of the presenting sym ptoms and the clinical findings. Elevated TnI levels indicate myocardial damage, but are not specific for ischemic heart disease. Elevated TnI levels are seen in patients with other cardiac conditions (including myocarditis and congestive h eart failure), and slight TnI elevations occur in patients with other conditions , including sepsis, renal failure, acidosis, acute neurological disease, and per sistent tachyarrhythmia.[id number] 07:30:00* Test Item Value Reference Range Comments MAGNESIUM (BEAKER) (test fyox=102) 2.7 mg/dL 1.6-2.6 BASIC METABOLIC [id number] 07:30:00* Test Item Value Reference Range Comments SODIUM (BEAKER) (test ehci=738) 142 meq/L 136-145 POTASSIUM (BEAKER) (test ujgw=313) 4.5 meq/L 3.5-5.1 CHLORIDE (BEAKER) (test qqje=952) 104 meq/L 98-107 CO2 (BEAKER) (test djug=192) 31 meq/L 22-29 BLOOD UREA NITROGEN (BEAKER) (test vxhm=460) 12 mg/dL 7-21 CREATININE (BEAKER) (test igsp=747) 0.87 mg/dL 0.57-1.25 GLUCOSE RANDOM (BEAKER) (test hwsq=046) 101 mg/dL 70-105 CALCIUM (BEAKER) (test skck=911) 10.2 mg/dL 8.4-10.2 EGFR (BEAKER) (test ihmu=6549) 63 mL/min/1.73 sq m ESTIMATED GFR IS NOT ACCURATE CREATININE CLEARANCE IN PREDICTING GLOMERULAR FILTRATION RATE. ESTIMATED GFR IS NOT APPLICABLE FOR DIALYSIS PATIENTS. LIPID [id number] 07:30:00* Test Item Value Reference Range Comments TRIGLYCERIDES (BEAKER) (test nzxz=618) 72 mg/dL CHOLESTEROL (BEAKER) (test xnec=628) 154 mg/dL HDL CHOLESTEROL (BEAKER) (test mgak=466) 51 mg/dL LDL CHOLESTEROL CALCULATED (BEAKER) (test vkqz=828) 89 mg/dL Triglyceride Reference Range: Low Risk <150 Borderline 150-199 High Risk 200-499 Very High Risk >=500Cholesterol Reference Range: Low Risk <200 Borderline 200-239 High Risk >240HDL Cholesterol Reference Range: Low Risk >=60 High Risk <40LDL Cholesterol Reference Range: Optimal <100 Near Optimal 100-129 Borderline 130-159 High 160-189 Very High >=190 HEPATIC FUNCTION [id number] 07:30:00* Test Item Value Reference Range Comments TOTAL PROTEIN (BEAKER) (test lqob=758) 6.7 gm/dL 6.0-8.3 ALBUMIN (BEAKER) (test uldn=5893) 4.2 g/dL 3.5-5.0 BILIRUBIN TOTAL (BEAKER) (test xppe=612) 0.5 mg/dL 0.2-1.2 BILIRUBIN DIRECT (BEAKER) (test tpid=577) 0.2 mg/dL 0.1-0.5 ALKALINE PHOSPHATASE (BEAKER) (test qdmo=815) 45 U/L 40-150 AST (SGOT) (BEAKER) (test eeng=822) 34 U/L 5-34 ALT (SGPT) (BEAKER) (test mxkd=417) 19 U/L 6-55 [id number] 04:21:00* Test Item Value Reference Range Comments PROTIME (BEAKER) (test hmvs=445) 13.3 seconds 11.9-14.2 INR (BEAKER) (test nvog=360) 1.1 <=5.9 PARTIAL THROMBOPLASTIN TIME (BEAKER) (test umex=785) 39.5 seconds 22.5-36.0 Effective 01/09/2019: PT Reference Range ChangeNew: 11.9-14.2 Previous: 11.7-14. 7RECOMMENDED COUMADIN/WARFARIN INR THERAPY RANGESSTANDARD DOSE: 2.0-3.0 Include s: PROPHYLAXIS for venous thrombosis, systemic embolization; TREATMENT for venou s thrombosis and/or pulmonary embolus.HIGH RISK: Target INR is 2.5-3.5 for patie nts wiht mechanical heart valves.CBC W/PLT COUNT & AUTO [id number] 04:09:00* Test Item Value Reference Range Comments WHITE BLOOD CELL COUNT (BEAKER) (test mrmm=917) 5.8 K/ L 3.5-10.5 RED BLOOD CELL COUNT (BEAKER) (test rpha=321) 4.11 M/ L 3.93-5.22 HEMOGLOBIN (BEAKER) (test mnqk=311) 13.0 GM/DL 11.2-15.7 HEMATOCRIT (BEAKER) (test gpwy=631) 39.3 % 34.1-44.9 MEAN CORPUSCULAR VOLUME (BEAKER) (test ovfv=977) 95.6 fL 79.4-94.8 MEAN CORPUSCULAR HEMOGLOBIN (BEAKER) (test nejg=216) 31.6 pg 25.6-32.2 MEAN CORPUSCULAR HEMOGLOBIN CONC (BEAKER) (test hysv=971) 33.1 GM/DL 32.2-35.5 RED CELL DISTRIBUTION WIDTH (BEAKER) (test vdlx=783) 13.7 % 11.7-14.4 PLATELET COUNT (BEAKER) (test tcsh=222) 236 K/CU MM 150-450 MEAN PLATELET VOLUME (BEAKER) (test mzsh=506) 10.3 fL 9.4-12.3 NUCLEATED RED BLOOD CELLS (BEAKER) (test bicq=552) 0 /100 WBC 0-0 NEUTROPHILS RELATIVE PERCENT (BEAKER) (test jhuq=612) 62 % LYMPHOCYTES RELATIVE PERCENT (BEAKER) (test ylwh=156) 25 % MONOCYTES RELATIVE PERCENT (BEAKER) (test qgru=786) 11 % EOSINOPHILS RELATIVE PERCENT (BEAKER) (test coxr=739) 2 % BASOPHILS RELATIVE PERCENT (BEAKER) (test yccp=308) 0 % NEUTROPHILS ABSOLUTE COUNT (BEAKER) (test ugbo=750) 3.62 K/ L 1.56-6.13 LYMPHOCYTES ABSOLUTE COUNT (BEAKER) (test cdpe=937) 1.46 K/ L 1.18-3.74 MONOCYTES ABSOLUTE COUNT (BEAKER) (test rrqp=906) 0.61 K/ L 0.24-0.36 EOSINOPHILS ABSOLUTE COUNT (BEAKER) (test mrga=307) 0.11 K/ L 0.04-0.36 BASOPHILS ABSOLUTE COUNT (BEAKER) (test hugq=353) 0.02 K/ L 0.01-0.08 IMMATURE GRANULOCYTES-RELATIVE PERCENT (BEAKER) (test wurx=4669) 0 % 0-1 TROPONIN [id number] 00:11:00* Test Item Value Reference Range Comments TROPONIN I (BEAKER) (test kibz=706) 0.13 ng/mL 0.00-0.03 Troponin I (TnI) levels must be interpreted in the context of the presenting sym ptoms and the clinical findings. Elevated TnI levels indicate myocardial damage, but are not specific for ischemic heart disease. Elevated TnI levels are seen in patients with other cardiac conditions (including myocarditis and congestive h eart failure), and slight TnI elevations occur in patients with other conditions , including sepsis, renal failure, acidosis, acute neurological disease, and per sistent tachyarrhythmia.[id number] 00:04:00* Test Item Value Reference Range Comments PHOSPHORUS (BEAKER) (test dbaz=808) 3.5 mg/dL 2.3-4.7 [id number] 00:04:00* Test Item Value Reference Range Comments MAGNESIUM (BEAKER) (test xvfg=091) 1.9 mg/dL 1.6-2.6 BASIC METABOLIC [id number] 00:04:00* Test Item Value Reference Range Comments SODIUM (BEAKER) (test qwym=322) 140 meq/L 136-145 POTASSIUM (BEAKER) (test bozx=585) 4.0 meq/L 3.5-5.1 CHLORIDE (BEAKER) (test crss=477) 105 meq/L 98-107 CO2 (BEAKER) (test asfl=379) 25 meq/L 22-29 BLOOD UREA NITROGEN (BEAKER) (test wozz=336) 14 mg/dL 7-21 CREATININE (BEAKER) (test krle=906) 0.84 mg/dL 0.57-1.25 GLUCOSE RANDOM (BEAKER) (test tiwv=572) 106 mg/dL 70-105 CALCIUM (BEAKER) (test zvwx=984) 9.7 mg/dL 8.4-10.2 EGFR (BEAKER) (test obok=8887) 66 mL/min/1.73 sq m ESTIMATED GFR IS NOT ACCURATE CREATININE CLEARANCE IN PREDICTING GLOMERULAR FILTRATION RATE. ESTIMATED GFR IS NOT APPLICABLE FOR DIALYSIS PATIENTS.
[2019-10-10 14:30] VITALS: BP 122/68
--- NOTE | 2019-10-10 14:30 | NUR ---
1430pt in Rm #9, prepped for procedure. Alert oriented and appropriate, PERRLA, respirations even and unlabored to room air. Pulses x4 extremities equal and palpable. Cap fill brisk < 3 sec.Scheduled BivICD Ischemic Cardiomyopathy.Dr Karen Zamora to perform. Skin warm and dry integrity appears intact in general. Frail. IV 20g left arm started stick x3 and labled, and presents healthy w/o s/s of infiltration or complaint. Abdomen soft and supple. pt offered toileting up to bathroom voidx1. denies need to defecate. Personal affects with patient. Family at bedside. Romero Torres . Pt and family verbalizes understanding of POC. lino/rn
[2019-10-10 15:04] VITALS: BP 122/65
[2019-10-10] MEDS ORDERED: VANCOMYCIN HCL 2 GM in SODIUM CHLORIDE 0.9% 500ML 500 ML IV ONE (17:00)
[2019-10-10] MEDS ORDERED: MIDAZOLAM HCL 2 MG/2 ML VIAL ONE ×3 (17:43→19:22)
[2019-10-10] MEDS ORDERED: FENTANYL CITRATE/PF 100MCG/2 ML INJ ONE (17:44)
[2019-10-10] MEDS ORDERED: LIDOCAINE 1% W/EPINEPHRINE 20 ML VIAL ONE (17:44)
[2019-10-10] MEDS ORDERED: BACITRACIN 50,000 UNIT VIAL ONE (17:45)
[2019-10-10] MEDS ORDERED: VANCOMYCIN 1GM/NS 250 ML 250 ML ONE (17:46)
[2019-10-10] MEDS ORDERED: SODIUM CHLORIDE 0.9% 1000ML 1,000 ML ONE ×2 (17:46→18:08)
[2019-10-10] MEDS ORDERED: SODIUM CHLORIDE 0.9% 500ML 500 ML ONE (17:46)
[2019-10-10 20:48] VITALS: BP 167/78
--- NOTE | 2019-10-10 20:52 | Diagnostic Imaging Report ---
Examination: Single AP view of the chest. COMPARISON: None. INDICATION: Status post biventricular ICD IMPRESSION: 1. Lines and Tubes: Left upper chest triple lead cardiac device with distal tip projecting in the right atrium, right ventricle and coronary sinus. 2. Lungs are well-inflated. Bilateral mild interstitial opacities extending from the olga lidia suggesting mild interstitial pulmonary edema, small left pleural effusion and likely associated atelectasis in the left lower lobe. 3. Mild enlargement of the cardiac silhouette. Central pulmonary venous congestion. 4. No acute bony abnormalities. Signed by: Dr. John Adam M.D. on 10/10/2019 8:50 PM
[2019-10-10 21:15] VITALS: BP 167/78
--- NOTE | 2019-10-10 21:15 | NUR ---
RECEIVED PATIENT FROM FURNACE ROOM SUPERVISOR AOX3, NO SIGNS OF DISTRESS NOTED. IS AT BEDSIDE AND PATIENT VOICES NO PAIN AT THIS TIME. BED IS IN LOWEST POSITION, BOTH SIDE RAILS ARE UP, CALL LIGHT IS WITHIN REACH, WILL CONTINUE TO MONITOR.
[2019-10-11 00:33] VITALS: BP 152/68
--- NOTE | 2019-10-11 02:52 | Operative Report ---
DATE OF PROCEDURE: 10/10/2019 SURGEON: Ryan Jones MD PREPROCEDURE DIAGNOSES: 1. 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 2. Congestive heart failure class 3. 3. Left bundle branch block. POSTPROCEDURE DIAGNOSIS: 1. 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 2. Congestive heart failure class 3. 3. Left bundle branch block. ESTIMATED BLOOD LOSS: 10 mL. COMPLICATIONS: None. PROCEDURES PERFORMED: 1. Biventricular cardiac defibrillator placement. 2. Moderate sedation. Moderate conscious sedation was provided under my direct supervision by a sedation trained nurse. Sedation approximate, 1 hour, Versed and fentanyl. There were no complications. See sedation form for details. DESCRIPTION OF PROCEDURE: After informed consent was obtained, the patient was brought to the electrophysiology laboratory in a fasting, nonsedated state. Area over her chest was prepped and draped in the usual sterile fashion. Moderate sedation and prophylactic antibiotics were given. 1% lidocaine was used as local anesthetic and a 3 cm incision was made over the left subclavicular area. Electrocautery, sharp and blunt dissection were used to bridge the muscular fascia and a pocket was created for event implantation of the device. Vascular access was obtained x3 in the left axillary vein using modified Seldinger technique under fluoroscopic guidance. Three sheaths were placed. Ventricular lead advanced to the RV apex. R-wave 17, pacing 1.6 at 0.5, impedance 500. The coronary sinus was cannulated using AL2 catheter and Raoul wire. Coronary sinus angiogram demonstrated a posterolateral branch successfully cannulated. We used limited amount of contrast about 7-10 mm during the CS angiogram. The patient stated there were 2 at 0.5, impedance 600. Then the atrial lead to the right atrial appendage P-wave 2, pacing threshold 1.4 at 0.5, impedance 800. Sheaths were removed from the body. Leads were secured to fascia using Ethibond. Pocket was made in the submuscular space. It was irrigated with antibiotic solution using the pulse gas producer. Hemostasis was meticulous. Leads were connected to the device and entire ICD system placed in the submuscular pocket. Incision was closed using absorbable sutures and Dermabond. The patient tolerated the procedure well. Procedure was then complete. Of note, we used vancomycin powder in the pocket. SUMMARY OF HARDWARE IMPLANTEDD: The new ICD is a [employer], serial #[id number]. The atrial lead is [employer] #[id number]. The right ventricular lead is [employer] #[id number]. The left ventricular lead is [employer] #[id number]. IMPRESSION: Successful biventricular cardiac defibrillator placement via left axillary vein in a submuscular pocket. PLAN: 1. Routine postop monitoring on telemetry bed. 2. Chest x-ray. 3. Follow up in 2 weeks. MD BARBARA Win/MODL /[id number]
[2019-10-11 04:43] VITALS: BP 175/76
[2019-10-11 08:30] VITALS: BP 161/76
[2019-10-11 09:37] VITALS: BP 161/76
--- NOTE | 2019-10-11 11:54 | Progress Note ---
DATE: NO DICTATION. MD KEYSHA Hernandez/AJ /[id number]
[2019-10-11] MEDS ORDERED: MINOCYCLINE HC100 M1 PO (13:44)
[2019-10-11] MEDS ORDERED: ULTRAM50 MG PO (13:44)
== END 2019-10-11 14:28 | disposition home or self-care (01) ==
LOC: CATH LAB 13:29 → MED/SURG 19:13
PROVIDERS: ADMIT Internal Medicine; ATTEND Internal Medicine
DX: I42.0 Dilated cardiomyopathy (principal); I25.5 Ischemic cardiomyopathy; I44.7 Left bundle-branch block, unspecified; I44.0 Atrioventricular block, first degree; I11.0 Hypertensive heart disease with heart failure; I50.42 Chronic combined systolic (congestive) and diastolic (congestive) heart failure; E78.00 Pure hypercholesterolemia, unspecified; E11.9 Type 2 diabetes mellitus without complications; I25.10 Atherosclerotic heart disease of native coronary artery without angina pectoris; I35.0 Nonrheumatic aortic (valve) stenosis; I25.2 Old myocardial infarction; Z95.1 Presence of aortocoronary bypass graft; Z85.3 Personal history of malignant neoplasm of breast; M19.90 Unspecified osteoarthritis, unspecified site; Z79.84 Long term (current) use of oral hypoglycemic drugs; Z79.82 Long term (current) use of aspirin
CPT/HCPCS: 33225; 33249; C1896; 36415; 71045; 80048; 85025; 85610; 93005; 99152; 99153; C1769; C1777; C1882; C1887; C1898; G0378; J2250; J3010; J3370; J7030; J7040

== ENCOUNTER → 2020-02-18 | Day surgery (SDC) | payer MEDICARE, OTHER ==
[2020-02-14 09:58] LABS: BASOPHILS % 0.4 % (0.0-1.0); EOSINOPHILS # (AUTO) 0.1 (0.0-0.4); EOSINOPHILS % 0.9 % (0.0-6.0); HEMATOCRIT 45.4 % (34.2-44.1); HEMOGLOBIN 14.4 g/dL (12.0-16.0); LYMPHOCYTES % 9.9 % (18.0-39.1); MEAN CORPUSCULAR HGB CONC 31.7 g/dL (31-35); MEAN CORPUSCULAR VOLUME 94.6 fL (81-99); MONOCYTES # (AUTO) 0.9 (0.2-0.8); MONOCYTES % 8.8 % (4.4-11.3); NEUTROPHILS # (AUTO) 7.7 (2.1-6.9); NEUTROPHILS % 79.7 % (38.7-80.0); PLATELET COUNT 174 x10e3/uL (140-360); RED CELL DISTRIBUTION WIDTH 16.1 % (11.7-14.4)
[2020-02-14 10:17] LABS: ALBUMIN 3.7 g/dL (3.5-5.0); ALBUMIN/GLOBULIN RATIO 1.1 (0.8-2.0); ANION GAP 11.3 mmol/L (8-16); CREATININE, SERUM 1.08 mg/dL (0.57-1.11); POTASSIUM 4.3 mmol/L (3.5-5.1)
[~2020-02-18] VITALS: Ht 167.6 cm; Wt 59.4 kg
[~2020-02-18] MED LIST changes: +ALPRAZOLAM 0.5 MG TAB ONE; +CLARITIN10 MG PO; +DIPHENHYDRAMINE HCL 25 MG CAP ONE; +FENTANYL CITRATE/PF 100MCG/2 ML INJ ONE; +HEPARIN SOD/SOD CHLORIDE 0 ML ONE; +HEPARIN SOD/SOD CHLORIDE 2,000 ML ONE; +IOPAMIDOL 300MG/ML 100 ML INFUS..BTL IV ONE; +LIDOCAINE HCL 2% LOCAL 20 ML VIAL ONE; +MIDAZOLAM HCL 2 MG/2 ML VIAL ONE; +MINOCYCLINE HC100 M1 PO; +MULTI-VITAMIN1 EACH PO; +SODIUM CHLORIDE 0.9% 1000ML 0 ML ONE; +SODIUM CHLORIDE 0.9% 1000ML 1,000 ML ONE
[2020-02-18 11:18] VITALS: BP 144/79
[2020-02-18 15:37] VITALS: BP 144/67
--- NOTE | 2020-02-18 15:37 | NUR ---
1537p Received pt to room #10,bedside report received from BLACK Connelly. Alert oriented and appropriate, PERRLA, respirations even and unlabored to room air. Pulses x4 extremeties equal and strong. Pedal pulses PT/DP X4 and marked. Cap fill brisk < 3 sec. Left groin Mynx Skin warm and dry integrity appears D/I left hand IV 20g to XXX presents healthy w/o s/s of infiltration or complaint. Abdomen soft and supple. pt offered toileting, denies need to urinate or defecate. No personal affects with patient. Family at BS. Pt and family verbalizes understanding of POC Currently w/o complaint of pain or need.ds/rn --
[2020-02-18 15:45] VITALS: BP 144/87
[2020-02-18 16:00] VITALS: BP 140/71
[2020-02-18 16:30] VITALS: BP 131/77
[2020-02-18 17:00] VITALS: BP 137/72
--- NOTE | 2020-02-18 17:00 | NUR ---
1700pm Pt meets DC criteria. lef Mynx groin site assessed for s/s of complication and presence of hematoma. Skin warm, dry, no discolor, and pulses present. IV removed from left hand. Distal tip appears intact. VS WNL. Pt denies pain, sob, or need at this time. Family at bs Review of discharge paperwork and follow up instructions.Understands to f/o Dr Marquez to evaluate rt leg fix Sent copies and cd with family to give to DR Marquez office as well as copy for personal use.Verbalized understanding. Knows to f/o will scheduled appt Dr Sanchez 2wks. check Mynx site.Pt to wheelchair and transported to front of hospital. Transferred to private vehicle under own strength w/o incident with DC paperwork in hand. - lino/shashi
--- NOTE | 2020-02-18 19:38 | Operative Report ---
DATE OF PROCEDURE: 02/18/2020 SURGEON: Baljit Sanchez MD INDICATION: Peripheral arterial disease with claudication. COMPLICATIONS: None. BLOOD LOSS: Minimal. PROCEDURES PERFORMED: 1. Abdominal aorta catheter placement, abdominal aortogram. 2. Selective catheter placement from the left femoral artery to the right superficial femoral artery (third-order in unilateral extremity angiogram). 3. Ultrasound-guided access in the left femoral artery with the image storage and sheath placement. 4. Conscious sedation administration, hemodynamic, neurological monitoring and recovery by cleaning laborer RN, supervision by , 35 minutes. RECOMMENDATIONS: Surgical repair of right groin AV fistula. DESCRIPTION OF PROCEDURE: Access was obtained in the left femoral artery. Using ultrasound guidance, a 6-Vietnamese sheath was placed. Abdominal aortogram demonstrated widely patent abdominal aorta and iliac arteries bilaterally. The catheter then advanced in the left femoral artery to the right superficial femoral artery. Third-order catheter placement unilateral extremity angiogram demonstrated no evidence of peripheral arterial disease, but AV fistula was noted, large size from the right profunda artery into the right common femoral vein. No endovascular options exist. Left groin repaired using Mynx closure device. The patient discharged home the same day. Baljit Sanchez MD KSB/MODL /[id number]
== END | disposition home or self-care (01) ==
LOC: CATH LAB 10:58
PROVIDERS: ATTEND Internal Medicine Interventional Cardiology
DX: I73.9 Peripheral vascular disease, unspecified (principal); I77.0 Arteriovenous fistula, acquired; I87.2 Venous insufficiency (chronic) (peripheral); I25.708 Atherosclerosis of coronary artery bypass graft(s), unspecified, with other forms of angina pectoris; I44.7 Left bundle-branch block, unspecified; I11.0 Hypertensive heart disease with heart failure; I50.20 Unspecified systolic (congestive) heart failure; E78.00 Pure hypercholesterolemia, unspecified; E11.9 Type 2 diabetes mellitus without complications; Z88.0 Allergy status to penicillin; Z88.8 Allergy status to other drugs, medicaments and biological substances; Z01.812 Encounter for preprocedural laboratory examination; Z11.59 Encounter for screening for other viral diseases; Z95.1 Presence of aortocoronary bypass graft; Z82.49 Family history of ischemic heart disease and other diseases of the circulatory system; Z83.3 Family history of diabetes mellitus
CPT/HCPCS: 36247; 36415 ×2; 75625; 76937; 80053; 82948; 85025; 87635; C1760; C1769 ×2; J2001; J2250; J3010; J7030; Q9967; 75710; 99152; U0002

== ENCOUNTER → 2020-11-30 | Day surgery (SDC) | payer MEDICARE ==
[2020-11-27 13:56] LABS: BASOPHILS % 0.3 % (0.0-1.0); EOSINOPHILS # (AUTO) 0.1 (0.0-0.4); EOSINOPHILS % 0.9 % (0.0-6.0); HEMATOCRIT 41.6 % (34.2-44.1); HEMOGLOBIN 13.7 g/dL (12.0-16.0); LYMPHOCYTES # (AUTO) 0.9 (1.0-3.2); LYMPHOCYTES % 10.3 % (18.0-39.1); MEAN CORPUSCULAR HEMOGLOBIN 31.6 pg (28-32); MEAN CORPUSCULAR HGB CONC 32.9 g/dL (31-35); MEAN CORPUSCULAR VOLUME 96.1 fL (81-99); MONOCYTES # (AUTO) 0.7 (0.2-0.8); NEUTROPHILS # (AUTO) 6.9 (2.1-6.9); NEUTROPHILS % 79.9 % (38.7-80.0); PLATELET COUNT 195 x10e3/uL (140-360); RED BLOOD COUNT 4.33 x10e6/uL (3.6-5.1); RED CELL DISTRIBUTION WIDTH 13.3 % (11.7-14.4)
[2020-11-27 14:08] LABS: ANION GAP 14.8 mmol/L (8-16); CALCIUM 9.3 mg/dL (8.4-10.2); CREATININE, SERUM 1.06 mg/dL (0.57-1.11); POTASSIUM 3.8 mmol/L (3.5-5.1)
[~2020-11-30] MED LIST changes: -ALPRAZOLAM 0.5 MG TAB ONE; +BUPIVACAINE HCL 0.5% INJ 30 ML VIAL INJ ONE; +CLINDAMYCIN PHOS 900MG/ 50ML 50 ML IV ONE; -DIPHENHYDRAMINE HCL 25 MG CAP ONE; -HEPARIN SOD/SOD CHLORIDE 0 ML ONE; -HEPARIN SOD/SOD CHLORIDE 2,000 ML ONE; -IOPAMIDOL 300MG/ML 100 ML INFUS..BTL IV ONE; +JARDIANCE10 MG PO; -LIDOCAINE HCL 2% LOCAL 20 ML VIAL ONE; +LIDOCAINE HCL 2% LOCAL INJ 5 ML SDV VIAL INJ ONE; -MIDAZOLAM HCL 2 MG/2 ML VIAL ONE; +ONDANSETRON HCL INJ 2MG/ML 2ML 2 MG/ML VIAL ONE; +PHENYLEPHRINE HCL 1% 10 MG/ML VIAL ONE; +POVIDONE IODINE 0.05% 0.05 % ML PO ONE; +PROPOFOL IV EMULSION 10 MG/ML 20 ML VIAL ONE; +SEVOFLURANE INHAL SOLN 250 ML PEN BTL ONE; -SODIUM CHLORIDE 0.9% 1000ML 0 ML ONE; -SODIUM CHLORIDE 0.9% 1000ML 1,000 ML ONE; +TYLENOL # 31 EA PO
[2020-11-30 09:13] VITALS: BP 136/70
== END | disposition home or self-care (01) ==
LOC: OR 05:35
PROVIDERS: ATTEND Specialist
DX: S76.191A Other specified injury of right quadriceps muscle, fascia and tendon, initial encounter (principal); I25.810 Atherosclerosis of coronary artery bypass graft(s) without angina pectoris; I11.0 Hypertensive heart disease with heart failure; I50.9 Heart failure, unspecified; I25.2 Old myocardial infarction; E11.9 Type 2 diabetes mellitus without complications; E78.5 Hyperlipidemia, unspecified; F41.9 Anxiety disorder, unspecified; W22.8XXA Striking against or struck by other objects, initial encounter; Z88.6 Allergy status to analgesic agent; Z88.0 Allergy status to penicillin; Z88.8 Allergy status to other drugs, medicaments and biological substances; Z91.048 Other nonmedicinal substance allergy status; Z91.09 Other allergy status, other than to drugs and biological substances; Z01.810 Encounter for preprocedural cardiovascular examination; Z01.812 Encounter for preprocedural laboratory examination; Z20.822 Contact with and (suspected) exposure to COVID-19; Z79.02 Long term (current) use of antithrombotics/antiplatelets; Z92.21 Personal history of antineoplastic chemotherapy; Z85.3 Personal history of malignant neoplasm of breast; Z92.3 Personal history of irradiation; Z95.810 Presence of automatic (implantable) cardiac defibrillator; Z95.1 Presence of aortocoronary bypass graft
CPT/HCPCS: 27380; 36415 ×2; 80048; 82948; 85025; 93005; J3010; U0002; J2001; J2370; J2405